=== PATIENT | male | born 1940 | race Caucasian/White ===

== ENCOUNTER 2017-03-20 20:29 | Emergency (ER) | payer MEDICARE ==
--- NOTE | 2017-03-20 21:38 | RAD ---
UPRIGHT PORTABLE CHEST ONE VIEW: 03/20/17 HISTORY: 76-year-old male with high blood pressure at home with associated chest pain. COMPARISON: 11/29/15. FINDINGS: Monitor leads overlie the chest. Mild right hemidiaphragm elevation. Heart size is normal. No conflu ent pneumonia, overt edema or pleural effusion or other acute process. IMPRESSION: No acute intrathoracic disease. Stable from prior study. POS: [facility]
[2017-03-20 22:05] LABS: #Eosinphils 0.2 thou/uL (0.0-0.7); #Monocytes 0.3 thou/uL (0.11-0.59); #Neutrophils 1.8 thou/uL (1.40-6.50); %Basophils 0.5 % (0.0-1.0); %Eosinophils 5.1 % (0.0-10.0); %Lymphocytes 30.3 % (21.0-51.0); %Monocytes 9.4 % (0.0-10.0); Hematocrit 31.8 % (42.0-52.0); Mean Platelet Volume 5.4 fL (7.4-10.4); Red Blood Cell (RBC) Count 3.29 mill/uL (4.70-6.10); White Blood Cell (WBC) Count 3.3 thou/uL (4.8-10.8)
[2017-03-20] MEDS ORDERED: Labetalol HCl 100 MG/20 ML VIAL ONE (22:12)
[2017-03-20 22:25] LABS: ALT (SGPT) 40 U/L (8-55); AST (SGOT) 22 U/L (5-34); Alkaline Phosphatase 63 U/L (40-150); Anion Gap 13 mmol/L (10-20); BUN (Urea Nitrogen) 19 mg/dL (8.4-25.7); Bilirubin, Total 0.5 mg/dL (0.2-1.2); Calc. Creatinine Clearance 0 mL/min (70-130); Calcium 9.8 mg/dL (7.8-10.44); Carbon Dioxide 27 mmol/L (23-31); Chloride 107 mmol/L (98-107); Estimated GFR-MDRD 42; Globulin 2.5 g/dL (2.4-3.5); Lipase 95 U/L (8-78); Protein, Total 6.5 g/dL (5.8-8.1)
[2017-03-20 22:29] LABS: Troponin I Less than 0.010 ng/mL (< 0.028)
[2017-03-20 23:16] LABS: Bilirubin Negative (Negative); Blood, Urine Negative (Negative); Glucose, Urine (Dipstick) 250 mg/dL (Negative); Ketone, Urine Negative (Negative); Nitrite Negative (Negative); Protein, Urine (Dipstick) 100 mg/dL (Neg-Trace); Urobilinogen 0.2 mg/dL (0.2-1.0)
[2017-03-20 23:18] LABS: Bacteria/HPF None Seen HPF (None Seen); Hyaline Casts/LPF 0-3 HYALINE CAST LPF (0-3 Hyaline); RBC/HPF None Seen HPF (0-3); Squamous Epithelial None Seen HPF (0-3); WBC/HPF None Seen HPF (0-3)
== END 2017-03-20 23:32 | disposition home or self-care (01) ==
LOC: ERS 20:29
DX: I16.0 Hypertensive urgency (principal); N17.9 Acute kidney failure, unspecified; E11.9 Type 2 diabetes mellitus without complications; E78.5 Hyperlipidemia, unspecified; I10 Essential (primary) hypertension; Z79.84 Long term (current) use of oral hypoglycemic drugs; Z79.899 Other long term (current) drug therapy
CPT/HCPCS: 36415; 71010; 80053; 81003; 81015; 82553; 82570; 83690; 84300; 84484; 84540; 85025; 93005; 96374

== ENCOUNTER 2017-05-11 09:06 | Emergency (ER) | payer MEDICARE, OTHER ==
--- NOTE | 2017-05-11 09:40 | RAD ---
CHEST 1 VIEW: Date: 05/11/17 HISTORY: Nonproductive cough. COMPARISON: Chest 1 view dated 03/12/17. FINDINGS: Lungs are clear. No pneumothorax or effusion. Cardiac silhouette and mediastinal contours within norm al limits. No acute osseous abnormality. IMPRESSION: No acute intrathoracic abnormality. No significant change. POS: [facility]
[2017-05-11 09:48] LABS: #Eosinphils 0.1 thou/uL (0.0-0.7); #Lymphocytes 0.9 thou/uL (1.20-3.40); #Monocytes 0.4 thou/uL (0.11-0.59); #Neutrophils 1.6 thou/uL (1.40-6.50); %Basophils 0.3 % (0.0-1.0); %Eosinophils 4.1 % (0.0-10.0); %Lymphocytes 29.5 % (21.0-51.0); %Monocytes 11.7 % (0.0-10.0); Hematocrit 29.2 % (42.0-52.0); Mean Platelet Volume 5.9 fL (7.4-10.4); Red Blood Cell (RBC) Count 2.97 mill/uL (4.70-6.10)
[2017-05-11 10:05] LABS: ALT (SGPT) 22 U/L (8-55); AST (SGOT) 17 U/L (5-34); Alkaline Phosphatase 66 U/L (40-150); Anion Gap 12 mmol/L (10-20); BUN (Urea Nitrogen) 18 mg/dL (8.4-25.7); Bilirubin, Total 0.7 mg/dL (0.2-1.2); Calc. Creatinine Clearance 0 mL/min (70-130); Calcium 10.1 mg/dL (7.8-10.44); Carbon Dioxide 26 mmol/L (23-31); Chloride 107 mmol/L (98-107); Estimated GFR-MDRD 56; Globulin 2.2 g/dL (2.4-3.5); Protein, Total 6.3 g/dL (5.8-8.1)
[2017-05-11] MEDS ORDERED: Ketorolac Tromethamine 60 MG/2 ML VIAL ONE (10:29)
[2017-05-11 11:05] LABS: Troponin I 0.035 ng/mL (< 0.028)
== END 2017-05-11 10:37 | disposition home or self-care (01) ==
LOC: ERS 09:06
DX: R09.1 Pleurisy (principal); E11.9 Type 2 diabetes mellitus without complications; E78.5 Hyperlipidemia, unspecified; I10 Essential (primary) hypertension
CPT/HCPCS: 36415; 71010; 80053; 82553; 83880; 84484; 85025; J1885

== ENCOUNTER 2017-06-25 15:11 | Outpatient (CLI) | payer MEDICARE, OTHER | END 2017-06-25 15:12 | disposition home or self-care (01) | LOC: BICULT 15:11 | PROVIDERS: ATTEND Internal Medicine Nephrology | DX: N18.9 Chronic kidney disease, unspecified (principal); N28.1 Cyst of kidney, acquired; N28.89 Other specified disorders of kidney and ureter; K76.0 Fatty (change of) liver, not elsewhere classified | CPT/HCPCS: 76770 ==

== ENCOUNTER 2017-07-22 08:04 | Outpatient (CLI) | payer MEDICARE, OTHER ==
--- NOTE | 2017-07-22 10:13 | RAD ---
RADIOGRAPH CHEST TWO VIEWS: Comparison: 05-11-17 Clinical history: Dyspnea. FINDINGS: There is mild elevation of the right hemidiaphragm. Slight patchy density seen at the left lung base. Otherwise, no lobar consolidation or effusion. No discrete pneumothorax. There is vascular calcifica tion. Pericardiac silhouette is borderline in size. IMPRESSION: Mild patchy density at the left lung base may be related to pericardial fat pad. Otherwise, no lobar consolidation is visualized. POS: [facility]
== END 2017-07-22 08:05 | disposition home or self-care (01) ==
LOC: RAD 08:04
PROVIDERS: ATTEND Internal Medicine Critical Care Medicine
DX: R06.00 Dyspnea, unspecified (principal); J98.4 Other disorders of lung
CPT/HCPCS: 71046

== ENCOUNTER 2017-08-08 20:58 | Inpatient (IN) | payer MEDICARE, OTHER ==
[~2017-08-08 20:58] MED LIST: ISOVUE-370 76%-LOCM 1 ML ONE
[2017-08-08] MEDS ORDERED: Ondansetron HCl/PF 4 MG/2 ML Vial ONE (21:45)
[2017-08-08] MEDS ORDERED: Morphine 4 MG/ML VIAL ONE (21:45)
[2017-08-08 21:52] LABS: #Basophils 0.1 thou/uL (0.0-0.2); #Eosinphils 0.1 thou/uL (0.0-0.7); #Lymphocytes 0.6 thou/uL (1.20-3.40); #Monocytes 0.4 thou/uL (0.11-0.59); %Basophils 1.5 % (0.0-1.0); %Eosinophils 2.3 % (0.0-10.0); %Lymphocytes 15.4 % (21.0-51.0); %Monocytes 9.3 % (0.0-10.0); %Neutrophils 71.6 % (42.0-75.0); Hemoglobin 12.2 g/dL (14.0-18.0); Mean Corpuscular HGB CONC 35.1 g/dL (32.0-36.0); Mean Corpuscular Hemoglobin 31.8 pg (27.0-31.0); Mean Corpuscular Volume 90.6 fl (80.0-94.0); Mean Platelet Volume 5.8 fL (7.4-10.4); Platelet Count 181 thou/uL (130-400); RBC Distribution Width 12.8 % (11.5-14.5); Red Blood Cell (RBC) Count 3.84 mill/uL (4.70-6.10); White Blood Cell (WBC) Count 4.2 thou/uL (4.8-10.8)
[2017-08-08 22:14] LABS: ALT (SGPT) 23 U/L (8-55); AST (SGOT) 15 U/L (5-34); Alkaline Phosphatase 65 U/L (40-150); Anion Gap 14 mmol/L (10-20); BUN (Urea Nitrogen) 20 mg/dL (8.4-25.7); Bilirubin, Total 0.6 mg/dL (0.2-1.2); Calc. Creatinine Clearance 0 mL/min (70-130); Calcium 9.3 mg/dL (7.8-10.44); Carbon Dioxide 21 mmol/L (23-31); Chloride 108 mmol/L (98-107); Estimated GFR-MDRD 61; Globulin 2.2 g/dL (2.4-3.5); Glucose 257 mg/dL (83-110); Lipase 45 U/L (8-78); Potassium 4.4 mmol/L (3.5-5.1); Protein, Total 6.2 g/dL (5.8-8.1); Sodium 139 mmol/L (136-145)
[2017-08-08 22:28] LABS: Bilirubin Negative (Negative); Blood, Urine Trace (Negative); Clarity CLEAR (Clear); Glucose, Urine (Dipstick) 500 mg/dL (Negative); Leukocyte Negative (Negative); Nitrite Negative (Negative); Protein, Urine (Dipstick) > or equal to 300 mg/dL (Neg-Trace); Specific Gravity, Urine 1.026 (1.002-1.036); Urobilinogen 0.2 mg/dL (0.2-1.0); pH, Urine 6.5 (5.0-9.0)
[2017-08-08 22:29] LABS: Bacteria/HPF None Seen HPF (None Seen); Hyaline Casts/LPF 4-6 HYALINE CAST LPF (0-3 Hyaline); Pathc Cast-AUWi Flag 1.21 (0-2.49); WBC/HPF 0-3 HPF (0-3)
[2017-08-08 22:37] LABS: Crystals/HPF None Seen HPF (Negative); Yeast-All Forms None Seen HPF (None Seen)
--- NOTE | 2017-08-08 22:48 | RAD ---
FRONTAL RADIOGRAPH CHEST UPRIGHT AND SUPINE IMAGING ABDOMEN: Date: 08-08-17 Comparison: 05-21-15 History: Vomiting. Pain. FINDINGS: Frontal radiograph chest demonstrates no pneumothorax, pleural fluid, focal consolidation or alveolar edema. Heart and mediastinal contours appear grossly unremarkable. The splenic shadow is prominent suggesting possible splenomegaly. Upright imaging demonstrates no ramy e intraperitoneal air. Bowel suture line is seen in the right lower quadrant. A paucity of bowel gas limits detailed assessment for bowel obstruction. There are a few scattered air fluid levels within t he right lower quadrant. IMPRESSION: 1. No evidence for free intraperitoneal air or acute cardiopulmonary disease. 2. Question splenomegaly. 3. Paucity of bowel gas noted, limiting assessment. There are a few air fluid levels noted in the rig ht lower quadrant. If there is clinical concern for small bowel obstruction, CT examination of the ab domen/pelvis or short term follow up radiograph of the abdomen advised as fluid filled distended karla l is a possibility. POS: [facility]
--- NOTE | 2017-08-08 23:52 | CT ---
CT OF THE ABDOMEN AND PELVIS: Date: 08-08-17 Comparison: 08-01-16 History: Distention and pain, assess for bowel obstruction. Technique: Serial axial CT imaging at 5 mm intervals from the lung bases through the pubic symphysis with IV contrast. Coronal reformatted imaging obtained. FINDINGS: The lack of oral contrast limits assessment of the bowel. The imaged lung bases appear unremarkable. Partially imaged coronal arterial calcification is noted. There is no free intraperitoneal air noted. The spleen is enlarged, measuring 17.8 cm in AP dimension, similar when compared to prior imaging. The liver is unremarkable. Gallbladder is nonvisualized. Pancreas, adrenal glands, and kidneys demons trate no acute findings. There is an exophytic right renal lower pole cyst noted. Small volume free fluid is seen in the pelvis posteriorly and inferiorly. There is also small volume free fluid within the mesentery in the left lower quadrant on image 79. The colon is decompressed. Scattered left sided diverticulosis noted. There is a small bowel suture line in the mid right abdomen. There are numerous dilated loops of small bowel within the anterior lower abdomen/pelvis, some of whi ch contain debris/fecal material, measuring up to 4.4 cm in transverse dimension. There is a transiti on point in the right lower quadrant to decompress small bowel, best seen on image 70. Distal decompr essed small bowel loops are seen within the right lower quadrant. These findings are consistent with small bowel obstruction with transition point in the right lower quadrant. There is a small hiatal he rnia containing debris. There are scattered atherosclerotic calcification of the abdominal aorta and its branches, extensivel y involving the abdominal aorta. Mild stable charleen prominence noted in the portahepatis and superior aspect of the retroperitoneum. Bi lateral fat containing inguinal hernias are present. There is dystrophic calcification within the pro state gland. There is lower lumbar spine facet hypertrophy with no worrisome lytic or blastic bone le coleen. IMPRESSION: 1. Multiple distal fluid filled dilated small bowel loops, some of which contain fecal material, with transition point in the right lower quadrant on image 70, evidence of significant small bowel obstru ction. Associated small volume free fluid noted in the left lower quadrant and pelvis. 2. No free intraperitoneal air. 3. Nonspecific splenomegaly. 4. Atherosclerotic calcification of the abdominal aorta and its branches as well as coronary arteries . 5. Surgical consultation advised. POS: [facility]
[2017-08-09] MEDS ORDERED: Ondansetron ODT 4 MG TAB SL PRN (01:13)
[2017-08-09] MEDS ORDERED: Ondansetron HCl/PF 4 MG/2 ML Vial IVP PRN (01:13)
[2017-08-09] MEDS ORDERED: Morphine 4 MG/ML VIAL SLOW IVP PRN ×2 (01:23→06:19)
[2017-08-09] MEDS ORDERED: Dextrose 5% in Water 1,000 ML IV PRN (01:38)
[2017-08-09] MEDS ORDERED: Dextrose 50% Abboject 50 ML SYRINGE SLOW IVP PRN (01:38)
[2017-08-09] MEDS: Dextrose 5 % And 0.9 % NaCl 1,000 ML IV SCH ×2 (01:41→10:33)
[2017-08-09] MEDS ORDERED: Carvedilol 25 MG TAB PO SCH ×3 (02:00→19:00)
[2017-08-09] MEDS ORDERED: Lisinopril 20 MG TAB PO SCH ×3 (02:00→18:45)
[2017-08-09 02:36] VITALS: BMI 32.3
[2017-08-09] MEDS ORDERED: Metoprolol Tartrate 5 MG/5 ML VIAL IVP PRN (03:06)
[2017-08-09] MEDS: HumaLOG 300 UNITS/3 ML VIAL SC PRN ×3 (06:20→17:38)
--- NOTE | 2017-08-09 06:59 | HP ---
CHIEF COMPLAINT: Abdominal pain. HISTORY OF PRESENT ILLNESS: This is a 76-year-old male with a known history of recurrent small-bowel obstruction, diabetes, hypertension, hyperlipidemia who presents with a chief complaint of abdominal pain. The patient states that this is very similar to the prior episodes of abdominal pain, althoug h not as severe as he had had in the past for small-bowel obstructions. The patient reports this occ urred earlier today and that he has had nausea without overt emesis, abdominal pain, and no bowel mov ements for the last 2 days. At the time of my evaluation on the floor, the patient's pain is currently controlled. His nausea is controlled. He understands the plan of care. REVIEW OF SYSTEMS: As per HPI. Denies any recent significant weight changes. Denies any recent fev ers or chills at home. HEENT: No new dizziness, headache or lightheadedness or vision changes. CARDIOVASCULAR: Denies any accompanying chest pain or chest pressure. Denies any left-sided arm num bness or tingling, diaphoresis or shortness of breath. RESPIRATORY: Denies any dyspnea with exertion, shortness of breath, recent upper respiratory infecti on. Denies any cough, congestion or postnasal drip. GASTROINTESTINAL: As per above. GENITOURINARY: Denies any recent dysuria or changes or difficulty with urinary frequency, quantity o r odor. MUSCULOSKELETAL: Denies any recent new myalgias or arthralgias. The remainder of review of systems otherwise negative. PAST MEDICAL HISTORY: 1. As per above including small-bowel obstruction x16 according to the patient. 2. Diabetes. 3. Hypertension. 4. Hyperlipidemia. PAST SURGICAL HISTORY: 1. Status post bowel obstruction surgeries x3. 2. Status post hernia repair. 3. Status post open cholecystectomy. HOME MEDICATIONS: Please see the EMR for full details, but his regimen does include Lantus, aspirin, fenofibrate, lisinopril, omeprazole, glipizide, Plavix, metformin, carvedilol, Lasix. ALLERGIES: No known drug allergies. FAMILY HISTORY: The patient does not know of any other family member with GI disease, recurrent smal l-bowel obstruction, or any bowel obstruction at all. SOCIAL HISTORY: The patient denies any alcohol, tobacco or illicit drug use. CODE STATUS: He wishes to be full code at this point in time. PHYSICAL EXAMINATION: VITAL SIGNS: Temperature 98.0, pulse of 82, respirations 18, satting 95% on room air, blood pressure 154/63. GENERAL: The patient is awake, alert, oriented x3, a reasonable historian as noted above. HEENT: Normocephalic, atraumatic. Equal ocular motions are intact, slightly dry mucous membranes. CARDIOVASCULAR: S1, S2. No murmurs, rubs or gallops. Soft heart tones likely secondary to habitus. Pulses 2+ bilateral upper extremities, no pitting pedal edema. RESPIRATORY: Respiratory limited anterior examination, otherwise reasonable air movement. No wheeze s, rales or rhonchi. Clear to auscultation bilaterally. ABDOMEN: Large, distended, decreased bowel sounds, soft, currently nontender to palpation, status po st IV pain medication administration. MUSCULOSKELETAL: Able to move all 4 extremities independently and self-reposition in the bed without assistance. LABORATORY DATA AND IMAGING: WBC 4.2, hemoglobin 12.2, hematocrit 34.8, platelets 181. Sodium 139, potassium 4.4, chloride 108, bicarbonate 21, BUN 20, creatinine 1.17, glucose 257, calcium 9.3, tota l bilirubin 0.6, AST 15, ALT 23, alkaline phosphatase 65, total protein 6.2, albumin 4.0. UA signifi cant for urine protein greater than 300, urine glucose 500 and trace blood with 4-6 squamous epitheli al cells and 4-6 hyaline casts. 08/03/2017 - Acute abdomen series. Impression, "no evidence for free intraperitoneal air or acute car diopulmonary disease. Question splenomegaly. Positive air glass noted, limiting assessment. There are a few air fluid levels noted in the right lower quadrant. If there is clinical concern for small -bowel obstruction, CT examination of the abdomen or pelvis or short term follow up radiograph of the abdomen advised as fluid filled distended bowel is a possibility". 08/03/2017 - CT of the abdomen and pelvis. Impression: Multiple distal fluid filled dilated small b owel loops, some of which contain fecal material with transition point in the small lower quadrant on image 70 of evidence of significant small-bowel obstruction. Associated small volume free fluid not ed in the left lower quadrant and pelvis. No free intraperitoneal air. Nonspecific splenomegaly. A therosclerotic calcification of the abdominal aorta and its branches as well as coronary arteries. S urgical consultation advised. ASSESSMENT AND PLAN: A 76-year-old male who presented with a chief complaint of abdominal pain. 1. Abdominal pain with presentation consistent with small-bowel obstruction. Surgical consult appre ciated. The patient is currently n.p.o. with IV fluids, pain regimen, empiric antibiotics including Cipro and Flagyl at this point in time. 2. Hypertension, stable. Hold the patient's home oral antihypertensive regimen. Utilize p.r.n., me toprolol IV as needed. 3. Type 2 diabetes. Continue the patient on a sliding scale insulin since he is n.p.o. We will hol d his home anti-hyperglycemic regimen and closely monitor. 4. Diet: N.p.o. 5. Activity: As tolerated. 6. Deep venous thrombosis prophylaxis, sequentials. Thank you for asking me care for the patient. He wishes to be full code at this point in time. Admi t inpatient to medical/surgical.
--- NOTE | 2017-08-09 09:29 | RAD ---
2 VIEWS ABDOMEN: Date: 08/09/17 COMPARISON: 06/18/14. CT abdomen/pelvis dated 08/08/17. HISTORY: Small bowel obstruction. FINDINGS: Supine and upright views of the abdomen show a nonspecific, nonobstructed bowel gas pattern. Contrast is seen in the bladder from prior contrast examination. An anastomotic staple line is seen in the ri ght abdomen. There is radiopaque material in both renal collecting systems in the region of the kidne ys which likely represents contrast as no definite calcifications were seen bilaterally on the prior CT. IMPRESSION: Nonobstructed bowel gas pattern. POS: [facility]
[2017-08-09] MEDS ORDERED: Ketorolac Tromethamine 30 MG/ML VIAL IVP PRN (11:17)
[2017-08-09] MEDS ORDERED: Acetaminophen 500 MG TAB PO PRN (11:17)
[2017-08-09] MEDS ORDERED: Acetaminophen 1,000 MG in Premix Bag 1 BAG IVPB PRN (11:17)
--- NOTE | 2017-08-09 12:15 | RAD ---
GASTROGRAFIN SMALL BOWEL: HISTORY: Evaluate for small bowel obstruction. COMPARISON: 08/03/16. FINDINGS: Two views abdomen were used as editor school photograph radiograph. Based on the 2-view abdomen, there is no evidence o f small bowel distention or dilatation. The patient was administered Gastrografin orally. Gastrografin opacifies multiple normal-caliber sma ll bowel loops. There is passage of Gastrografin into the colon on the 1 hour and 30 minute image. No evidence of high-grade obstruction. IMPRESSION: No evidence of a high-grade obstruction. POS: [facility]
--- NOTE | 2017-08-09 12:38 | HP ---
HISTORY OF PRESENT ILLNESS: Chip Freedman is a 76-year-old male patient who works as a master machinist in [place] reports this occasion admitted by Hospitalist last night with abdominal pain, nausea, and vo miting. He feels better this morning. NG tube was not placed. CT scan of abdomen and pelvis sugges yessi a small-bowel obstruction, distal small bowel decompression and apparent fecalization proximal to the staple line from the previous small bowel resection. The patient reports a tally of 17 hospital izations for bowel obstructions. This is including multiple hospitalizations before and operation in [place] several years ago. 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 He had had numerous hospitalizations prior to that with nonop erative treatment before finally undergoing small bowel resection. Apparently, there is no evidence of disease. I saw the patient in May 2014 and was admitted for repeat obstruction. The patient because of his frequent admissions underwent 06/18/2014 laparoscopy converted to a mini laparotomy wi segmental small bowel resection of the old anastomosis and reanastomosis. Postoperatively, he did well. Dr. Loyola readmitted him on 08/01/2016 and he underwent nonoperative treatment of a similar episode. Subsequent to that, he was admitted in [place] and underwent reoperation for a bowel obstr uction. He thinks due to adhesions, he does not think he had a bowel resection. He has not admissio ns since that admission laid in 2016 in [place]. He has bowel function has been normal until this cu rrent event. As stated above, patient feels better overnight. Even though he has not had an NG tube, he states is is the first admission where they have not placed an NG tube and he was surprised that they did no t. Abdominal x-rays and CAT scan revealed changes consistent with a bowel obstruction. When I nicanor olivier saw him, he had not had abdominal x-rays, but since that time, I have ordered a small bowel foll ow-through. By the time of this dictation, he has initiated that. On the 15-minute film, there are normal caliber small bowel loops seen and within 30 minutes, he does have progression of the contrast towards the staple line from his previous admission. By the 50-minute film, it appears that he may have early visualization of the colon. By the one and half hour film, he may have early visualizatio n of the colon and it is progressing. ALLERGIES: None. TOBACCO: None. ALCOHOL: None. PAST SURGICAL HISTORY: 1. 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 Numerous admissi ons prior to that, treated nonoperatively. 2. Operation by me in 2014 for recurrent obstruction due to multiple admissions prior for bowel obst ructions. 3. Surgery in [place] in 2017 for a bowel obstruction. Procedure performed, uncertain whether bowel resection was performed or not. Apparently, no evidence of disease today. Open cholecystectomy in the past. PAST MEDICAL HISTORY: Diabetes mellitus type 2, hypertension, hyperlipidemia, history of small bowel cancer, umbilical hernia repair, laparotomy in 2012 at [facility], up to date on colonoscopies. OUTPATIENT MEDICATIONS: Insulin 50 units subcutaneous p.m., aspirin daily, fenofibrate 160 mg daily, lisinopril 20 mg b.i.d., Prilosec 20 mg a day, fish oil daily, glipizide 10 mg b.i.d., Plavix [address], metformin 1000 mg b.i.d., carvedilol 1.5 b.i.d., and Lasix daily 20 mg. PHYSICAL EXAMINATION: VITAL SIGNS: 98.1 degrees, 78, 140/57. HEENT: Unremarkable. LUNGS: Clear to auscultation. CARDIAC: Regular rate and rhythm without murmur or gallop. ABDOMEN: Soft, nontender. Bowel sounds present, mild tympany. EXTREMITIES: No ankle edema. LABORATORY DATA: White count 4, hemoglobin 12. Basic metabolic profile normal, glucose 257. ASSESSMENT AND PLAN: Recurrent partial bowel obstruction. He has done well without a nasogastric tu be overnight. He is feeling much better today. I had discussed with him treatment options and after discussion, we will proceed with small bowel follow-through Gastrografin and make further recommenda tions on that study. Nurses will call me when the study is complete or call me should he have any pr oblems during the study. In the meantime, continue ambulation and DVT prophylaxis.
--- NOTE | 2017-08-09 13:28 | PDOC.EVN ---
Event Note - Event Note Event Note: Pt seen and examined.chart reviewed in detail. case discussed w ROWENA Chew. SBFT does not show SBO. Pt has had many BM since the test. will start Full Liquid diet w advance as tolerated. DC home later today or tomorrow,when tolerates diet. will follow. DC IVF
[2017-08-09] MEDS ORDERED: metroNIDAZOLE 500 MG in Premix Bag 1 BAG IVPB SCH (14:00)
[2017-08-09] MEDS ORDERED: MD-Gastroview 120 ML BOT ONE (16:51)
[2017-08-09] MEDS ORDERED: hydrALAZINE 20 MG/ML VIAL SLOW IVP SCH (17:15)
[2017-08-09] MEDS ORDERED: hydrALAZINE 20 MG/ML VIAL SLOW IVP PRN (18:38)
[2017-08-09] MEDS ORDERED: [UNRECOGNIZED DRUG - REMARK] FS SCH (18:45)
[2017-08-09] MEDS ORDERED: Furosemide 40 MG/4 ML VIAL SLOW IVP SCH (20:30)
[2017-08-09] MEDS ORDERED: Nitroglycerin 2% Ointment 1 INCH/1 GM Packet TOP SCH (20:30)
[2017-08-09] MEDS ORDERED: Amlodipine 10 MG TAB PO SCH (20:30)
[2017-08-09] MEDS ORDERED: Insulin Detemir 100 UNITS/ML 25 UNITS in Admixture Fee 1 EACH SC SCH (21:00)
[2017-08-09] MEDS ORDERED: Enoxaparin Sodium 40 MG/0.4 ML SYRINGE SC SCH (21:00)
[2017-08-10] MEDS ORDERED: Carvedilol 25 MG TAB PO SCH (09:00)
[2017-08-10] MEDS ORDERED: Lisinopril 20 MG TAB PO SCH (09:00)
[2017-08-10] MEDS ORDERED: Polyethylene Glycol 3350 17 GM Packet PO SCH (09:00)
[2017-08-10 11:06] VITALS: BP 172/65; TEMP 97.5
--- NOTE | 2017-08-10 14:16 | DIS ---
DATE OF ADMISSION: 08/08/2017 DATE OF DISCHARGE: 08/10/2017 PRIMARY CARE PHYSICIAN: Out of town in [place]. PRIMARY DISCHARGE DIAGNOSES: 1. Partial small-bowel obstruction, resolved. 2. Diabetes. 3. Hypertension. 4. Dyslipidemia. 5. History of multiple small-bowel obstruction requiring surgeries. 6. History of hernia repair and open cholecystectomy. DISCHARGE MEDICATIONS: Resume the home medications as follows: Lantus 50 units at bedtime, aspirin 162 mg daily, fenofibrate 160 mg daily, lisinopril 20 mg p.o. b.i.d., omega 3 fish oil, glipizide 10 mg p.o. b.i.d., Plavix 75 mg daily, metformin 1000 mg b.i.d., carvedilol 37.5 mg p.o. b.i.d., and Las ix 20 mg daily as needed. PROCEDURES DONE DURING HOSPITAL: 1. Acute abdominal series upon presentation, which showed a few air fluid levels in the right lower quadrant. 2. CT scan of the abdomen and pelvis which was concerning for significant small-bowel obstruction wi thout any free intraperitoneal air and nonspecific splenomegaly on abdominal aortic calcification. 3. Repeat abdominal x-ray on the next day at 08/09/2017 which showed nonobstructed bowel gas pattern . 4. Small bowel x-ray, 08/09/2017, which was negative for any high grade obstruction. CONSULTATIONS: Inhouse. General Surgery, Dr. Cool. HISTORY OF PRESENT ILLNESS: Mr. Freedman is a very sweet 76-year-old male with known history of multi ple small bowel obstructions in the past and multiple abdominal surgeries, who presented to [facility] ency room with complaints of abdominal pain. He felt that he might have another small-bowel obstruct ion. He had nausea upon presentation without any overt emesis and no bowel movement for 2 days prior to admission. He was admitted with a presumptive diagnosis of partial small-bowel obstruction after CT scan of the abdomen and pelvis done in the ER was consistent with the same. He was kept n.p.o. a nd General Surgery was consulted. Please see admission history and physical for further details. HOSPITAL COURSE: Dr. Cool saw the patient from General surgical team. He underwent a small bowel follow-through as repeat abdominal x-ray was unremarkable. Small bowel follow-through once again was negative for any obstruction. After the small bowel follow-through with Gastrografin ingestion, the patient started to have quite frequent and loose bowel movements which is his normal frequency. He did not require any NG tube insertion at this time. If he had partial small-bowel obstruction upon p resentation, it improved quite quickly without any intervention. By the time of discharge, he was to lerating a regular diet without any emesis and he was having regular stools. PHYSICAL EXAMINATION: He was seen and examined prior to discharge. His physical examination this mo rning include, VITAL SIGNS: Temperature 97.5, pulse 66, respirations 20, saturating 96% on room air, blood pressure 172/65. GENERAL: No acute distress, awake, alert, oriented x3. CHEST: Clear to auscultation bilaterally. Rate and rhythm is regular. ABDOMEN: Soft, nontender, nondistended, positive bowel sounds. Discharge plan was discussed with the patient who verbalized understanding. He is eager to go and wi ll follow up with his own physicians in [place] in 7-10 days. He will also follow up with Dr. Cool if he stays locally in the next week or so.
== END 2017-08-10 12:02 | disposition home or self-care (01) | DRG 390 ==
LOC: ERS 20:58 → SURG A 23:45
PROVIDERS: ADMIT Internal Medicine; ATTEND Internal Medicine
DX: K56.600 Partial intestinal obstruction, unspecified as to cause (principal); E11.9 Type 2 diabetes mellitus without complications; I10 Essential (primary) hypertension; E78.5 Hyperlipidemia, unspecified; Z85.068 Personal history of other malignant neoplasm of small intestine; Z90.49 Acquired absence of other specified parts of digestive tract; Z79.02 Long term (current) use of antithrombotics/antiplatelets; Z79.82 Long term (current) use of aspirin; Z79.4 Long term (current) use of insulin; Z79.899 Other long term (current) drug therapy
CPT/HCPCS: 36416; 74019; 74022; 74177; 74250; 80053; 81003; 81015; 83690; 85025; 86850; 86900; 86901; 94760; 96374; 96375; J0360; J0744; J1650; J1815; J1885; J1940; J2270; J2405

== ENCOUNTER 2018-05-15 19:13 | Inpatient (IN) | payer MEDICARE, OTHER ==
[2018-05-15] MEDS ORDERED: Nitroglycerin 2% Ointment 1 INCH/1 GM Packet ONE (19:43)
[2018-05-15 19:53] LABS: #Eosinphils 0.1 thou/uL (0.0-0.7); #Lymphocytes 0.8 thou/uL (1.20-3.40); #Monocytes 0.3 thou/uL (0.11-0.59); #Neutrophils 1.7 thou/uL (1.40-6.50); %Eosinophils 2.7 % (0.0-10.0); %Lymphocytes 27.2 % (21.0-51.0); %Monocytes 10.8 % (0.0-10.0); %Neutrophils 58.4 % (42.0-75.0); Hemoglobin 9.6 g/dL (14.0-18.0); Mean Corpuscular HGB CONC 34.7 g/dL (32.0-36.0); Mean Corpuscular Hemoglobin 33.8 pg (27.0-31.0); Mean Corpuscular Volume 97.3 fL (78.0-98.0); Mean Platelet Volume 7.1 fL (7.4-10.4); Platelet Count 134 thou/uL (130-400); RBC Distribution Width 15.4 % (11.5-14.5); Red Blood Cell (RBC) Count 2.84 mill/uL (4.70-6.10)
--- NOTE | 2018-05-15 20:12 | RAD ---
PORTABLE CHEST: HISTORY: Shortness of breath. COMPARISON: 05/11/2017 and 08/08/2017 FINDINGS: Heart size is within normal limits. There are bibasilar lung changes with increased density, which c ould represent small effusions. No overt interstitial edema change is seen. IMPRESSION: Increased density in the bases, which could represent atelectasis with small effusions. No overt pul monary vascular engorgement or signs of interstitial edema. POS: [facility]
[2018-05-15 20:17] LABS: ALT (SGPT) 17 U/L (8-55); AST (SGOT) 19 U/L (5-34); Albumin 3.7 g/dL (3.4-4.8); Alkaline Phosphatase 73 U/L (40-150); Anion Gap 12 mmol/L (10-20); BUN (Urea Nitrogen) 17 mg/dL (8.4-25.7); Bilirubin, Total 1.1 mg/dL (0.2-1.2); Calc. Creatinine Clearance 0 mL/min (70-130); Carbon Dioxide 23 mmol/L (23-31); Chloride 113 mmol/L (98-107); Estimated GFR-MDRD 68; Globulin 2.1 g/dL (2.4-3.5); Glucose 185 mg/dL (83-110); Potassium 3.7 mmol/L (3.5-5.1); Protein, Total 5.8 g/dL (5.8-8.1); Sodium 144 mmol/L (136-145)
[2018-05-15] MEDS ORDERED: Acetaminophen 325 MG TAB PO PRN (21:42)
[2018-05-15] MEDS ORDERED: Bisacodyl 5 MG TAB PO PRN (21:42)
[2018-05-15] MEDS ORDERED: Senokot S 8.6-50 MG TAB PO PRN (21:42)
--- NOTE | 2018-05-15 21:43 | CT ---
CT ANGIO CHEST PERFORMED WITH INTRAVENOUS CONTRAST ENHANCEMENT WITH 3D RECONSTRUCTIONS: HISTORY: Shortness of breath. FINDINGS: There are large bilateral pleural effusions. There are bibasilar atelectatic lung changes seen. No infiltrative process. The slight ground glass appearance to the lung mata could be on the basis of some mild edema. Abutting the inferior margin of the right middle lobe is an approximately 6 to 7 mm nodular density, which could represent a pleural-based node. It is stable in size, as compared to a 09/11/2015 exam. No significant mediastinal or hilar lymphadenopathy. The thoracic aorta is normal in caliber. There is good pulmonary arterial opacification. No CT evidence for pulmonary embolus. IMPRESSION: 1. No CT evidence for pulmonary embolus. 2. Moderately large bilateral pleural effusions with bibasilar atelectasis. Changes would suggest s ome pulmonary edema type change. POS: [facility]
[2018-05-15] MEDS ORDERED: Dextrose 50% Abboject 50 ML SYRINGE SLOW IVP PRN (21:44)
[2018-05-15] MEDS ORDERED: Dextrose 5% in Water 1,000 ML IV PRN (21:44)
[2018-05-15] MEDS ORDERED: Furosemide 40 MG/4 ML VIAL ONE (22:24)
[2018-05-15] MEDS ORDERED: hydrALAZINE 20 MG/ML VIAL SLOW IVP PRN (22:57)
[2018-05-15 23:25] LABS: Troponin I 0.027 ng/mL (< 0.028)
--- NOTE | 2018-05-16 00:13 | HP ---
CHIEF COMPLAINT: Shortness of breath. HISTORY OF PRESENT ILLNESS: The patient is a very pleasant 77-year-old male with history of hypertension, coronary artery disease and diabetes, who presented to the hospital with complaints of shortness of breath. The patient states that in October of 2017, he was undergoing medical clearance for his endoscopy and colonoscopy where he was seen by Cardiology and ended up getting 3 stents, 1 to the distal RCA and 2 to the proximal RCA in October of 2017. The patient stated that he has been doing well since then, walks minimal without getting any short of breath at home. The patient states that for the past couple of weeks, he has been noticing significant shortness of breath on minimal exertion, which he normally never had before. For the past four days, his shortness of breath has worsened to the point that he is unable to lie flat and he has positive orthopnea. The patient also states that he has been noticing significant swelling on his lower extremities. The patient states that he is compliant with his medication, however, he has not been very compliant with his diet. The patient denies any fevers or chills at home. Initially, he thought maybe this was secondary to his lung problems, especially this time of the year he normally gets ill with an upper respiratory infection versus pneumonia, so he kept doing DuoNebs and his p.r.n. inhaler, however, this did not help much, so he came into the hospital for further evaluation. The patient stated that today while he was in the EMS, he started having some chest tightness, was given one nitroglycerin, which helped him relieve his chest pain. He denies any fevers or chills. Denies any abdominal pain, any nausea, vomiting, or diarrhea. PAST MEDICAL HISTORY: 1. Diabetes. 2. Hypertension. 3. Coronary artery disease status post stents x3. 4. He has a history of bowel obstructions in the past. 5. GERD. PAST SURGICAL HISTORY: He has a history of hernia repair, open cholecystectomy, 3 surgeries for his bowel obstruction and he has had recent stents placed in. FAMILY HISTORY: His family history, his parents have history of heart disease in his family. MEDICATION LIST: As of the following; he is on aspirin 81 mg daily. He is on Plavix 75 mg daily. He is on fenofibrate 145 mg daily. He is on glipizide 10 mg b.i.d. He is on carvedilol 25 mg b.i.d. He is on lisinopril 40 mg daily. He is also on omeprazole 20 mg daily and he is also on Levemir 50 units q.p.m. ALLERGIES: HE HAS NO KNOWN DRUG ALLERGIES. REVIEW OF SYSTEMS: All negative except for the ones mentioned above in the HPI. PHYSICAL EXAMINATION: VITAL SIGNS: As of following; temperature of 98.8, respirations are 18, he is 98% on 2 L, his blood pressure is 180/90 and his heart rate is 89. GENERAL: He is awake, alert, and oriented x3. Does get short of breath on speaking complete sentences. HEENT: Normocephalic, atraumatic. No lymphadenopathy noted. CVS: S1, S2 present. No murmurs, rubs, or gallops. LUNGS: Diminished breath sounds to bilateral lower bases. No rhonchi or wheezes noted. ABDOMEN: Soft and nontender. Bowel sounds are present x2. No hepatomegaly or splenomegaly noted. EXTREMITIES: He does have +2 lower extremity pitting edema. NEURO: No focal deficits noted. He is able to move all extremities. Skin: No cuts, lesions or bruises noted. PSYCH: He is awake, alert, and oriented x3, and his affect is normal. LABORATORY DATA: As of the following; WBCs of 3.0, hemoglobin of 9.6, hematocrit of 27.7 and his platelets are 134. Chemistry; sodium of 144, potassium of 3.7, BUN of 17, creatinine is 1.06. His glucose is 185. His BNP was 177.5. His troponin x1 was negative. His EKG just showed first-degree AV block. No ST elevation or depression noted. He also had a CTA, which did not indicate any acute pulmonary emboli, however, did indicate that he has bilateral large pleural effusion and also some pulmonary edema and also 6-7 mm nodular density. ASSESSMENT AND PLAN: The patient is a very pleasant 77-year-old male who presents to the hospital with complaints of shortness of breath: 1. Shortness of breath, most likely secondary to volume overload. He possibly could have some heart failure versus just worsening pleural effusions. We will get an echocardiogram. His last echo was in 2015, which indicated an EF I believe it was 55% to 60%. He did have some mild tricuspid insufficiency and mild increased pulmonary artery pressure, so we will recheck an echo. We will check a TSH. Given the fact that he had recent stents placed in and he has some volume overload, we will also consult Cardiology. The patient is supposed to see his braid cutter on Wednesday. However, I do not think he will be able to make it until then. We will also start the patient on some Lasix 40 mg daily. I have educated him on salt intake and water intake. He is going to be put on a fluid restriction and also we will control his blood pressure because his blood pressure currently was significantly elevated. 2. Hypertension. Again, I will adjust his medication or maybe add some p.r.n.s for better blood pressure control. 3. Mild anemia. I have noted that he has been having some mild anemia. His MCV is high to normal. We will be getting a colonoscopy once he is cleared from a cardiac standpoint. 4. Diabetes. We will continue his home medication, also put him on a sliding scale for a p.r.n. 5. Deep venous thrombosis prophylaxis. We will put the patient on some SCDs. 6. Also, the patient normally wears a CPAP at home. We will order a CPAP for him. Job ID: [id number]
[2018-05-16 01:16] VITALS: BMI 35.4
[2018-05-16 02:03] LABS: #Eosinphils 0.1 thou/uL (0.0-0.7); #Monocytes 0.3 thou/uL (0.11-0.59); #Neutrophils 2.6 thou/uL (1.40-6.50); %Basophils 0.1 % (0.0-1.0); %Lymphocytes 23.8 % (21.0-51.0); %Monocytes 8.5 % (0.0-10.0); %Neutrophils 65.7 % (42.0-75.0); Hemoglobin 9.2 g/dL (14.0-18.0); Mean Corpuscular HGB CONC 34.8 g/dL (32.0-36.0); Mean Corpuscular Hemoglobin 33.7 pg (27.0-31.0); Mean Platelet Volume 5.8 fL (7.4-10.4); Platelet Count 167 thou/uL (130-400); RBC Distribution Width 15.2 % (11.5-14.5); Red Blood Cell (RBC) Count 2.74 mill/uL (4.70-6.10)
[2018-05-16 02:29] LABS: Anion Gap 13 mmol/L (10-20); BUN (Urea Nitrogen) 18 mg/dL (8.4-25.7); Calc. Creatinine Clearance 75 mL/min (70-130); Calcium 9.3 mg/dL (7.8-10.44); Carbon Dioxide 24 mmol/L (23-31); Chloride 111 mmol/L (98-107); Estimated GFR-MDRD 59; Glucose 140 mg/dL (83-110); Potassium 3.4 mmol/L (3.5-5.1); Sodium 145 mmol/L (136-145)
[2018-05-16] MEDS: Carvedilol 25 MG TAB PO SCH ×2 (06:10→17:01)
[2018-05-16] MEDS ORDERED: Metoclopramide HCl 10 MG/2 ML VIAL IVP PRN (07:18)
[2018-05-16] MEDS ORDERED: Loperamide HCl 2 MG CAP PO PRN (07:18)
[2018-05-16] MEDS ORDERED: Loratadine 10 MG TAB PO PRN (07:18)
[2018-05-16] MEDS ORDERED: Diabetic Tussin 200 MG/10 ML UDCUP PO PRN (07:18)
[2018-05-16] MEDS ORDERED: Cepastat Lozenges 1 LOZ PO PRN (07:18)
[2018-05-16] MEDS ORDERED: Artificial Tears 18 DROP/0.9 ML EA EYE PRN (07:18)
[2018-05-16] MEDS ORDERED: Sodium Chloride 0.65% Nasal 44 ML BOT EA NARE PRN (07:18)
[2018-05-16] MEDS ORDERED: Zolpidem Tartrate 5 MG TAB PO PRN (07:18)
[2018-05-16] MEDS ORDERED: Nitroglycerin 0.4 MG TAB (25 Tab Bottle) SL PRN (07:18)
[2018-05-16] MEDS ORDERED: Eucerin (Mineral Oil/Petrolatum,White) 30 gm Jar TOP PRN (07:18)
[2018-05-16] MEDS ORDERED: Sodium Chloride 0.9% 10 ML ONE ×2 (08:24→14:15)
[2018-05-16] MEDS ORDERED: Furosemide 40 MG/4 ML VIAL SLOW IVP SCH (09:00)
[2018-05-16] MEDS: Fenofibrate Nanocrystallized 145 MG TAB PO SCH (09:40)
[2018-05-16] MEDS: Potassium Chloride 20 MEQ TAB PO SCH (09:40)
[2018-05-16] MEDS: Cilostazol 100 MG TAB PO SCH ×2 (09:41→17:01)
[2018-05-16] MEDS: Ascorbic Acid 500 mg Chewable Tablet PO SCH ×2 (09:41→19:53)
[2018-05-16] MEDS: Lisinopril 20 MG TAB PO SCH ×2 (09:41→19:53)
[2018-05-16] MEDS: Clopidogrel Bisulfate 75 MG TAB PO SCH (09:42)
[2018-05-16] MEDS: Fish Oil 1,000 MG CAP PO SCH ×2 (09:42→19:53)
[2018-05-16] MEDS: Ferrous Sulfate 325 MG TAB PO SCH (09:42)
[2018-05-16] MEDS: Enoxaparin Sodium 40 MG/0.4 ML SYRINGE SC SCH (09:42)
--- NOTE | 2018-05-16 09:42 | PDOC.PN ---
- Subjective Encounter Start Date: 05/16/18 Encounter Start Time: 07:20 -: old records requested/rev Patient seen and examined. No new complaints. No overnight events has leg edema, has orthopnea, feels better than yesterday - Objective Resuscitation Status - Order Detail: 05/15/18 21:42 Resuscitation Status Routine Resuscitation Status: FULL: Full Resuscitation MAR Reviewed: Yes Vital Signs & Weight: Vital Signs (12 hours) Temp Pulse Resp BP BP BP Pulse Ox 05/16/18 08:00 98 F 76 18 169/70 H 96 05/16/18 04:27 94 196/85 H 05/16/18 04:00 97.7 F 94 16 191/79 H 95 05/16/18 00:08 97.9 F 87 18 164/70 H 96 05/15/18 21:44 96 Weight Weight 226 lb Result Diagrams: 05/16/18 01:53 05/16/18 01:53 Additional Labs: Accuchecks 05/16/18 05/16/18 05/15/18 05:35 00:48 23:26 POC Glucose 130 H 190 H 89 05/15/18 05/15/18 23:09 22:58 POC Glucose 52 L* 48 L* Radiology Reviewed by me: Yes (chest xray reviewed) EKG Reviewed by me: Yes (nsr) Phys Exam - Physical Examination Constitutional: NAD HEENT: PERRLA, moist MMs, sclera anicteric Neck: supple high JVD Respiratory: no wheezing, no rhonchi rales at base Cardiovascular: RRR, no significant murmur, no rub Gastrointestinal: soft, non-tender, no distention, positive bowel sounds Musculoskeletal: pulses present, edema present Neurological: non-focal, normal sensation, moves all 4 limbs Lymphatic: no nodes Psychiatric: normal affect, A&O x 3 Skin: no rash, normal turgor Dx/Plan (1) CHF exacerbation Code(s): I50.9 - HEART FAILURE, UNSPECIFIED Status: Acute Qualifiers: Heart failure type: right-sided Qualified Code(s): I50.813 - Acute on chronic right heart failure Comment: Echo done today, result pending (2) Hypoglycemia associated with type 2 diabetes mellitus Code(s): E11.649 - TYPE 2 DIABETES MELLITUS WITH HYPOGLYCEMIA WITHOUT COMA Status: Acute Comment: will hold diabetic meds today and resume slowly (3) Hypokalemia Code(s): E87.6 - HYPOKALEMIA Status: Acute Comment: will replace potassium today (4) Anemia, normocytic normochromic Code(s): D64.9 - ANEMIA, UNSPECIFIED Status: Chronic Comment: add ferrous sulfate daily (5) COPD (chronic obstructive pulmonary disease) Status: Chronic Comment: continue duoneb 6 hourly (6) Diabetes type 2, controlled Code(s): E11.9 - TYPE 2 DIABETES MELLITUS WITHOUT COMPLICATIONS Status: Chronic (7) Dyslipidemia Code(s): E78.5 - HYPERLIPIDEMIA, UNSPECIFIED Status: Chronic (8) Hypertension Code(s): I10 - ESSENTIAL (PRIMARY) HYPERTENSION Status: Chronic (9) Obesity (BMI 30-39.9) Code(s): E66.9 - OBESITY, UNSPECIFIED Status: Chronic - Plan cont current plan of care, respiratory therapy * follow on echo result * continue diuresis until euvolemic * monitor daily labs weight and I/O chart * replace electrolytes as needed * medication reviewed as below * symptomatic treatment * cardiology on case. Review of Systems - Review of Systems Constitutional: negative: fever, chills, sweats, weakness, malaise, other Eyes: negative: Pain, Vision Change, Conjunctivae Inflammation, Eyelid Inflammation, Redness, Other ENT: negative: Ear Pain, Ear Discharge, Nose Pain, Nose Discharge, Nose Congestion, Mouth Pain, Mouth Swelling, Throat Pain, Throat Swelling, Other Respiratory: SOB with Excertion. negative: Cough, Dry, Shortness of Breath, Hemoptysis, Pleuritic Pain, Sputum, Wheezing Cardiovascular: orthopnea, edema. negative: chest pain, palpitations, paroxysmal nocturnal dyspnea, light headedness, other Gastrointestinal: negative: Nausea, Vomiting, Abdominal Pain, Diarrhea, Constipation, Melena, Hematochezia, Other Genitourinary: negative: Dysuria, Frequency, Incontinence, Hematuria, Retention , Other Musculoskeletal: negative: Neck Pain, Shoulder Pain, Arm Pain, Back Pain, Hand Pain, Leg Pain, Foot Pain, Other Skin: negative: Rash, Lesions, Ismael, Bruising, Other - Medications/Allergies Allergies/Adverse Reactions: Allergies Allergy/AdvReac Type Severity Reaction Status Date / Time No Known Drug Allergies Allergy Verified 09/12/15 02:05 Medications: Current Medications Acetaminophen (Tylenol) 650 mg PO Q4H PRN PRN Reason: Headache/Fever/Mild Pain (1-3) Albuterol/Ipratropium (Duoneb) 3 ml NEB [id number] [facility] Artificial Tears (Tears Naturale) 2 drop EA EYE PRN PRN PRN Reason: Dry Eyes Ascorbic Acid (Vitamin C) 1,000 mg PO BID [facility] Last Admin: 05/16/18 09:41 Dose: 1,000 mg Aspirin (Aspirin Chewable) 162 mg PO DAILY [facility] Last Admin: 05/16/18 09:40 Dose: 162 mg Bisacodyl (Dulcolax) 10 mg PO DAILYPRN PRN PRN Reason: Constipation Carvedilol (Coreg) 37.5 mg PO BID-[facility] [place] Last Admin: 05/16/18 06:10 Dose: 37.5 mg Cholecalciferol (Vitamin D3) 1,000 units PO DAILY [facility] Last Admin: 05/16/18 09:41 Dose: 1,000 units Cilostazol (Pletal) 100 mg PO BID-[facility] Last Admin: 05/16/18 09:41 Dose: 100 mg Clopidogrel Bisulfate (Plavix) 75 mg PO DAILY [facility] Last Admin: 05/16/18 09:42 Dose: 75 mg Dextrose/Water (Dextrose 50%) 25 gm SLOW IVP PRN PRN PRN Reason: Hypoglycemia Enoxaparin Sodium (Lovenox) 40 mg SC 0900 [facility] Last Admin: 05/16/18 09:42 Dose: 40 mg Fenofibrate (Tricor) 145 mg PO DAILY [facility] Last Admin: 05/16/18 09:40 Dose: 145 mg Ferrous Sulfate (Feosol) 325 mg PO QA-[facility] [place] Last Admin: 05/16/18 09:42 Dose: 325 mg Fish Oil (Fish Oil) 1,000 mg PO BID [facility] Last Admin: 05/16/18 09:42 Dose: 1,000 mg Furosemide (Lasix) 40 mg SLOW IVP DAILY [facility] Last Admin: 05/16/18 09:40 Dose: 40 mg Glucagon (Glucagon) 1 mg IM PRN PRN PRN Reason: Hypoglycemia Guaifenesin (Robitussin Sf) 200 mg PO Q4H PRN PRN Reason: Cough Hydralazine HCl (Apresoline) 5 mg SLOW IVP Q8H PRN PRN Reason: SBP > 180 Last Admin: 05/16/18 04:27 Dose: 5 mg Dextrose/Water (D5w) 1,000 mls @ 0 mls/hr IV .Q0M PRN PRN Reason: Hypoglycemia Insulin Human Lispro (Humalog) 0 units SC .MILD SLIDING SCALE PRN PRN Reason: Mild Correctional Scale Isosorbide Mononitrate (Imdur Er) 30 mg PO DAILY [facility] Last Admin: 05/16/18 09:41 Dose: 30 mg Lisinopril (Zestril) 20 mg PO BID [facility] Last Admin: 05/16/18 09:41 Dose: 20 mg Loperamide HCl (Imodium) 2 mg PO PRN PRN PRN Reason: Diarrhea/Loose Stools Loratadine (Claritin) 10 mg PO DAILYPRN PRN PRN Reason: Sinus Symptoms Metoclopramide HCl (Reglan) 5 mg IVP Q4H PRN PRN Reason: Nausea Mineral Oil/White Petrolatum (Eucerin Cream) 0 gm TOP BIDPRN PRN PRN Reason: Dry Skin Nitroglycerin (Nitrostat) 0.4 mg SL Q5MIN PRN PRN Reason: Chest Pain Pantoprazole Sodium (Protonix) 40 mg PO DAILY [facility] Last Admin: 05/16/18 09:41 Dose: 40 mg Potassium Chloride (K-Dur) 20 meq PO QA-[facility] [place] Last Admin: 05/16/18 09:40 Dose: 20 meq Rosuvastatin Calcium (Crestor) 20 mg PO [facility] Senna/Docusate Sodium (Senokot S) 2 tab PO BIDPRN PRN PRN Reason: Constipation Sodium Chloride (Tibes Nasal [place] 0.65%) 0 ml EA NARE QIDPRN PRN PRN Reason: Nasal Congestion Throat Lozenges (Cepastat Lozenges) 1 dottie PO Q2H PRN PRN Reason: Sore Throat Zolpidem Tartrate (Ambien) 5 mg PO HSPRN PRN PRN Reason: Insomnia
[2018-05-16 10:58] LABS: Bilirubin Negative (Negative); Blood, Urine Negative (Negative); Clarity CLEAR (Clear); Glucose, Urine (Dipstick) Negative (Negative); Leukocyte Negative (Negative); Nitrite Negative (Negative); Protein, Urine (Dipstick) 100 mg/dL (Neg-Trace); Specific Gravity, Urine 1.011 (1.002-1.036); Urobilinogen 0.2 mg/dL (0.2-1.0)
[2018-05-16 11:02] LABS: Bacteria/HPF None Seen HPF (None Seen); Hyaline Casts/LPF 0-3 HYALINE CAST LPF (0-3 Hyaline); Pathc Cast-AUWi Flag 0.29 (0-2.49); RBC/HPF 0-3 HPF (0-3); Squamous Epithelial None Seen HPF (0-3); WBC/HPF None Seen HPF (0-3)
[2018-05-16] MEDS ORDERED: Spironolactone 25 MG TAB PO SCH (14:00)
[2018-05-16] MEDS: Furosemide 40 MG/4 ML VIAL SLOW IVP SCH (14:40)
[2018-05-16] MEDS: HumaLOG 300 UNITS/3 ML VIAL SC PRN ×2 (14:47→17:06)
[2018-05-16] MEDS ORDERED: Rosuvastatin 20 MG TAB PO SCH (21:00)
[2018-05-17] MEDS: Furosemide 40 MG/4 ML VIAL SLOW IVP SCH (05:22)
[2018-05-17] MEDS ORDERED: Spironolactone 25 MG TAB PO SCH (08:00)
[2018-05-17] MEDS: Enoxaparin Sodium 40 MG/0.4 ML SYRINGE SC SCH (09:47)
[2018-05-17] MEDS: Cilostazol 100 MG TAB PO SCH (09:47)
[2018-05-17] MEDS: Ferrous Sulfate 325 MG TAB PO SCH (09:47)
[2018-05-17] MEDS: Lisinopril 20 MG TAB PO SCH (09:48)
[2018-05-17] MEDS: Clopidogrel Bisulfate 75 MG TAB PO SCH (09:48)
[2018-05-17] MEDS: Fish Oil 1,000 MG CAP PO SCH (09:48)
[2018-05-17] MEDS: Carvedilol 25 MG TAB PO SCH (09:48)
[2018-05-17] MEDS: Potassium Chloride 20 MEQ TAB PO SCH (09:49)
[2018-05-17] MEDS: Ascorbic Acid 500 mg Chewable Tablet PO SCH (09:49)
[2018-05-17] MEDS: Fenofibrate Nanocrystallized 145 MG TAB PO SCH (09:49)
[2018-05-17] MEDS: HumaLOG 300 UNITS/3 ML VIAL SC PRN (09:50)
--- NOTE | 2018-05-17 10:32 | DIS ---
DATE OF ADMISSION: 05/15/2018 DATE OF DISCHARGE: 05/17/2018 PRIMARY CARE PHYSICIAN: [facility] Call Admission. DISCHARGE DISPOSITION: Home. PRIMARY DISCHARGE DIAGNOSES: 1. Acute on chronic diastolic congestive heart failure exacerbation, stage C. 2. Hypoglycemia associated with diabetes type 2. 3. Hypokalemia. SECONDARY DISCHARGE DIAGNOSES: 1. Obesity with BMI of 35. 2. Hypertension. 3. Dyslipidemia. 4. Diabetes, type 2. 5. Chronic obstructive pulmonary disease. 6. Normocytic normochromic anemia. 7. Chronic diastolic congestive heart failure. PRIMARY PROCEDURE/OPERATION: None. RADIOLOGICAL INVESTIGATIONS: Chest x-ray showed bilateral pleural effusion. CT angiography showed no evidence of pulmonary embolism consistent with pleural effusion on echocardiography. LABORATORY DATA: Significant labs; WBC 4.0, hemoglobin 9.2, and platelets 167. Uric acid 6.3. TSH 4.17. Sodium 145, potassium 3.4, BUN 18, creatinine 1.20, and calcium 9.3. LFT normal. BNP 177. Cardiac enzyme negative. Urinalysis normal. DISCHARGE MEDICATIONS: 1. Vitamin C 1000 mg p.o. b.i.d. 2. Aspirin 162 mg daily. 3. Coreg 37.5 mg p.o. b.i.d. 4. Vitamin D3 of 1000 units p.o. daily. 5. Cilostazol 100 mg p.o. b.i.d. 6. Plavix 75 mg daily. 7. Fenofibrate 160 mg daily. 8. Glipizide 10 mg p.o. b.i.d. 9. Glucosamine 1 tablet daily. 10. Levemir insulin 60 units subcu at bedtime. 11. Iron 45 mg p.o. b.i.d. 12. Imdur 30 mg daily. 13. Lisinopril 40 mg p.o. b.i.d. 14. Magnesium 100 mg p.o. b.i.d. 15. Metformin 1000 mg p.o. b.i.d. 16. Fish oil one capsule p.o. b.i.d. 17. Prilosec 20 mg daily. 18. Crestor 20 mg p.o. at bedtime. 19. Januvia 100 mg daily. 20. Lasix 40 mg daily. 21. Potassium chloride 20 mEq p.o. daily. CONTRAINDICATION: None. CODE STATUS: Full code. INPATIENT NEEDLE CONTROL CHENILLER: Dr. Rodriguez was following while in the hospital. TEST RESULTS PENDING ON DISCHARGE: None. ALLERGIES: NO KNOWN DRUG ALLERGIES. DISCHARGE PLAN: Posthospital, the patient has appointment with Cardiology tomorrow. The patient will follow up with primary care physician. HOSPITAL COURSE: A 77-year-old male with above-mentioned medical problem, who was admitted by Dr. Genoveva Jarquin. Please see her H and P for further details. The patient has underlying diastolic CHF. He was admitted for increasing shortness of breath, increasing bilateral lower extremity edema. This patient was admitted for CHF exacerbation. On admission, his chest x-ray showing pulmonary vascular congestion and effusion. CT angio was negative for pulmonary embolism. The patient was treated with IV Lasix while in the hospital. His edema significantly improving. Cardiology was consulted while in the hospital. The patient is doing much better today. He wants to go home today because of Lauren. Cardiology saw this patient and they also agreed with discharging him home. Cardiology recommended to continue Lasix 40 mg daily and potassium chloride 20 mEq p.o. daily. While in the hospital, he had a hypoglycemic episode with that, so we kept on hold his diabetes medication. On discharge, we had resumed all his diabetes medication and if necessary the patient education about diabetic diet, fluid restriction, salt restriction, and hypoglycemia precaution discussed with the patient. We did echocardiography during this admission. The patient already has appointment with Cardiology tomorrow. The patient is doing much better and he wants to go home today. Cardiology also cleared him for discharging him home today. PHYSICAL EXAMINATION: The patient is seen and examined at the bedside today. VITAL SIGNS: Currently, temperature 97.9, pulse 80, respiratory rate 18, saturation 95% on room air, and blood pressure 165/73. Weight 226 pounds. GENERAL: The patient is currently alert, awake. No obvious acute distress. HEENT: Head; normocephalic, atraumatic. Eyes; pupils are round and reactive to light. Extraocular muscle intact. ENT; oropharynx within normal limits. Moist mucous membranes. No oral lesion. No pharyngeal erythema. No exudate. NECK: Supple. No JVD. No thyromegaly. No carotid bruit. No jugular venous distention. LUNGS: Clear to auscultation without any rhonchi or rales. CARDIAC: S1 and S2, regular without any murmur. ABDOMEN: Soft and benign without any tenderness. EXTREMITIES: No edema. NEUROLOGICAL: Nonfocal examination. Overall, the patient is medically stable for discharge today. Job ID: [id number]
[2018-05-17 11:41] VITALS: BP 165/80; TEMP 98.5
--- NOTE | 2018-05-20 15:11 | EKG ---
Test Reason : Blood Pressure : / mmHG Vent. Rate : 082 BPM Atrial Rate : 082 BPM P-R Int : 312 ms QRS Dur : 096 ms QT Int : 380 ms P-R-T Axes : 044 015 095 degrees QTc Int : 443 ms Poor data quality, interpretation may be adversely affected Sinus rhythm with 1st degree A-V block Nonspecific T wave abnormality Abnormal ECG Confirmed by MADELAINE MENDOZA D.O. ([id number]), clinical editor APPLE SHAFFER ([id number]) on 05/20/2018 3:11:12 PM Referred By: Confirmed By:MADELAINE MENDOZA D.O.
== END 2018-05-17 12:02 | disposition home or self-care (01) | DRG 293 ==
LOC: ERS 19:13 → 2NO 21:38
PROVIDERS: ADMIT Internal Medicine; ATTEND Internal Medicine
PROC: B24BZZZ Ultrasonography of Heart with Aorta (ICD-10-PCS; principal; 2018-05-16)
DX: I11.0 Hypertensive heart disease with heart failure (principal); I50.33 Acute on chronic diastolic (congestive) heart failure; E11.649 Type 2 diabetes mellitus with hypoglycemia without coma; E78.5 Hyperlipidemia, unspecified; E87.6 Hypokalemia; J44.9 Chronic obstructive pulmonary disease, unspecified; D64.9 Anemia, unspecified; E66.9 Obesity, unspecified; Z68.35 Body mass index [BMI] 35.0-35.9, adult; Z71.3 Dietary counseling and surveillance; Z79.82 Long term (current) use of aspirin; Z79.818 Long term (current) use of other agents affecting estrogen receptors and estrogen levels; Z79.4 Long term (current) use of insulin; Z79.84 Long term (current) use of oral hypoglycemic drugs; Z79.811 Long term (current) use of aromatase inhibitors; Z85.038 Personal history of other malignant neoplasm of large intestine
CPT/HCPCS: 36415; 36416; 71045; 71275; 80048; 80053; 81001; 83880; 84443; 84484; 84550; 85025; 93005; 93306; 94640; 94660; 94760; 96374; G8978-GP-CI; G8979-GP-CI; G8980-GP-CI; J0360; J1650; J1940; J7620

== ENCOUNTER 2018-10-02 00:22 | Inpatient (IN) | payer MEDICARE, OTHER ==
[2018-10-02] MEDS ORDERED: Ondansetron PF 4 MG/2 ML Vial ONE (01:20)
[2018-10-02] MEDS ORDERED: Ketorolac Tromethamine 30 MG/ML VIAL ONE (01:20)
[2018-10-02 01:24] LABS: #Eosinphils 0.1 thou/uL (0.0-0.7); #Lymphocytes 0.5 thou/uL (1.20-3.40); #Monocytes 0.5 thou/uL (0.11-0.59); #Neutrophils 5.1 thou/uL (1.40-6.50); %Basophils 0.5 % (0.0-1.0); %Eosinophils 1.9 % (0.0-10.0); %Lymphocytes 8.2 % (21.0-51.0); %Monocytes 8.7 % (0.0-10.0); %Neutrophils 80.8 % (42.0-75.0); Hemoglobin 9.8 g/dL (14.0-18.0); Mean Corpuscular HGB CONC 34.3 g/dL (32.0-36.0); Mean Corpuscular Hemoglobin 33.9 pg (27.0-31.0); Mean Corpuscular Volume 98.6 fL (78.0-98.0); Mean Platelet Volume 6.3 fL (7.4-10.4); Platelet Count 223 thou/uL (130-400); RBC Distribution Width 13.6 % (11.5-14.5); White Blood Cell (WBC) Count 6.3 thou/uL (4.8-10.8)
[2018-10-02 01:44] LABS: ALT (SGPT) 34 U/L (8-55); AST (SGOT) 38 U/L (5-34); Albumin 3.9 g/dL (3.4-4.8); Alkaline Phosphatase 142 U/L (40-150); Anion Gap 15 mmol/L (10-20); BUN (Urea Nitrogen) 21 mg/dL (8.4-25.7); Bilirubin, Total 1.7 mg/dL (0.2-1.2); Calc. Creatinine Clearance 0 mL/min (70-130); Calcium 10.2 mg/dL (7.8-10.44); Carbon Dioxide 25 mmol/L (23-31); Chloride 106 mmol/L (98-107); Estimated GFR-MDRD 52; Globulin 2.5 g/dL (2.4-3.5); Glucose 187 mg/dL (83-110); Lipase 25 U/L (8-78); Potassium 3.5 mmol/L (3.5-5.1); Protein, Total 6.4 g/dL (5.8-8.1); Sodium 142 mmol/L (136-145)
[2018-10-02 03:02] LABS: Bilirubin Negative (Negative); Blood, Urine Small (Negative); Clarity CLEAR (Clear); Glucose, Urine (Dipstick) Negative (Negative); Leukocyte Negative (Negative); Nitrite Negative (Negative); Protein, Urine (Dipstick) > or equal to 300 mg/dL (Neg-Trace); Specific Gravity, Urine 1.023 (1.002-1.036); pH, Urine 5.5 (5.0-9.0)
[2018-10-02 03:05] LABS: Bacteria/HPF None Seen HPF (None Seen); Hyaline Casts/LPF 7-10 HYALINE CAST LPF (0-3 Hyaline); Pathc Cast-AUWi Flag 1.36 (0-2.49); Squamous Epithelial 0-3 HPF (0-3); WBC/HPF 0-3 HPF (0-3)
[2018-10-02] MEDS ORDERED: Morphine 4 MG/ML VIAL SLOW IVP PRN (05:03)
[2018-10-02] MEDS ORDERED: Ondansetron ODT 4 MG TAB SL PRN (05:07)
[2018-10-02] MEDS ORDERED: Ondansetron PF 4 MG/2 ML Vial IVP PRN ×2 (05:07→11:11)
[2018-10-02 05:13] VITALS: BMI 32.3
[2018-10-02] MEDS: Sodium Chloride 0.9% 1,000 ML IV SCH ×2 (05:33→13:31)
[2018-10-02] MEDS: Ketorolac Tromethamine 30 MG/ML VIAL IVP SCH ×3 (06:30→21:31)
[2018-10-02] MEDS ORDERED: Vancomycin HCl 1.5 GM in Sodium Chloride 0.9% 250 ML 300 ML IVPB SCH (08:00)
--- NOTE | 2018-10-02 08:08 | RAD ---
CHEST 1 VIEW: Date: 10/02/18 INDICATION: History of sepsis. COMPARISON: Prior exam dated 05/15/19. FINDINGS: There is subsegmental atelectasis involving the right lung base. Left lung is clear. Heart size lorena l. No acute osseous abnormality evident. IMPRESSION: Subsegmental atelectasis right lower lobe. POS: BH
--- NOTE | 2018-10-02 10:22 | CT ---
PRELIMINARY REPORT/[facility]/EMERGENCY AFTER HOURS PROCEDURE: EXAM: CT Abdomen and Pelvis With Contrast EXAM DATE/TIME: 10/02/2018 2:13 AM CLINICAL HISTORY: 77 years old, male; Acute; Patient HX: Gala presents to the ED with C/O diffuse abdominal pain and nadia sea onset tonight. PT reports a history of bowel obstruction and reports that his symptoms today are similar. PT reports he feels bloated. PT denies fever, chills, chest pain, SOB and dysuria. PT report s a normal bm today. TECHNIQUE: Imaging protocol: Axial computed tomography images of the abdomen and pelvis with intravenous contras t. Coronal reformatted images were created and reviewed. COMPARISON: No relevant prior studies available. FINDINGS: Lungs: There is subpleural atelectasis of the dependent portions of the lungs. Mediastinum: A small hiatal hernia is present. ABDOMEN: Liver: There are no focal liver lesions identified. Gallbladder and bile ducts: There has been a cholecystectomy. There is no common bile duct dilation. Pancreas: Normal. No ductal dilation. Spleen: There is moderate splenomegaly. Adrenals: Normal. No mass. Kidneys and ureters: There is a simple cyst in the right kidney. There are multiple left renal hypode nsities that cannot be further characterized on the current examination. Stomach and bowel: The stomach is normal. The duodenum is unremarkable. There is liquefied stool with in the colon. There is small bowel dilatation up to 4 cm with abrupt collapse just beyond the small b owel anastomosis in the RIGHT lower quadrant suggestive of small bowel obstruction. There is fecal material within the small bowel compatible with delayed transit. Appendix: The appendix is not visualized. PELVIS: Bladder: The bladder is normal. Reproductive: The prostate gland demonstrates nonspecific parenchymal calcifications. ABDOMEN and PELVIS: Intraperitoneal space: There is trace fluid in the RIGHT inguinal canal. Bones/joints: No acute fracture. No dislocation. Soft tissues: Unremarkable. Vasculature: Normal. No abdominal aortic aneurysm. Lymph nodes: Normal. No enlarged lymph nodes. IMPRESSION: There is small bowel dilatation up to 4 cm with abrupt collapse just beyond the small bowel anastomos is in the RIGHT lower quadrant suggestive of small bowel obstruction. Thank you for allowing us to participate in the care of your patient. Dictated and Authenticated by: Corey Barnes MD 10/02/2018 3:09 AM Central Time ([place] & [place]) FINAL REPORT EMERGENCY AFTER HOURS CT ABDOMEN AND PELVIS: IMPRESSION: I agree with the preliminary report provided by [email or web address]. There are dilated loops of small bowel with pos sible suggested transition zone in the right lower quadrant. Findings are suspicious for partial smal l bowel obstruction. There is also fluid density seen within the colon, which can be seen with diarrh eal states. Recommend correlation. There is stable splenomegaly. There is a small hiatal hernia. There is a right renal cyst. There is p ostsurgical change of a partial small bowel resection in the right lower quadrant of the abdomen. Pro minent vascular calcifications. The gallbladder is surgically absent. No drainable free fluid is evid ent. Small amount of free fluid is seen in the pelvis. There is mild anasarca. POS: BH
[2018-10-02] MEDS ORDERED: Acetaminophen 325 MG TAB PO PRN (11:11)
[2018-10-02] MEDS ORDERED: ISOVUE-370 76%-LOCM 1 ML ONE (12:02)
[2018-10-02] MEDS ORDERED: MD-Gastroview 120 ML BOT ONE (12:07)
--- NOTE | 2018-10-02 13:38 | RAD ---
EXAM: XR Small Bowel STANDARD DATE: 10/02/2018 11:03 AM INDICATION: Small bowel obstruction COMPARISON: CT abdomen pelvis dated October 02, 2018 FINDING: There are a few mildly dilated loops of small bowel within the midabdomen and left upper qu adrant of the abdomen. There is contrast migration to the level colon by one hour. IMPRESSION:Mild partial small bowel obstruction.
[2018-10-02] MEDS: Lactated Ringer's 1,000 ML IV SCH (15:16)
--- NOTE | 2018-10-02 15:47 | HP ---
REASON FOR ADMISSION: Small bowel obstruction. HISTORY OF PRESENT ILLNESS: The patient gives history of having abdominal pain, which started around noontime. This was in both lower quadrants. The pain was 7 to 8 out of 10 in intensity, colicky pain. This was coming off and on. This lasted until 10 p.m. The patient finally got exhausted and came to emergency room. He has known history of prior small bowel obstruction nearly 19 times and has had 3 surgeries for the same in the past. The last small-bowel obstruction was more than a year ago. He has had some nausea associated with the abdominal pain and vomited once yesterday evening. None at present. This morning he has had a bowel movement. PAST MEDICAL AND SURGICAL HISTORY: History of nearly 19 times small bowel obstruction with 3 prior surgeries. History of colon cancer with prior surgery, diabetes mellitus type 2, peripheral vascular disease, coronary artery disease with 2 stents placed a year back at [facility], benign prostatic hypertrophy, diabetes mellitus type 2, right knee surgery, hernia repair, cholecystectomy, and colon surgery. CURRENT MEDICATIONS: 1. Carvedilol 25 mg twice daily. 2. Metformin 1000 mg twice daily. 3. Glipizide 10 mg twice daily. 4. Aspirin 162 mg p.o. daily. 5. Cilostazol 100 mg p.o. twice daily. 6. Spironolactone 25 mg daily. 7. Hydralazine 25 mg 3 times a day. 8. Levemir 60 units subcu nightly. 9. Imdur 30 mg p.o. daily. 10. Flomax extended release 0.4 mg p.o. daily. 11. Omeprazole 20 mg daily. ALLERGIES: NO KNOWN DRUG ALLERGIES. PERSONAL HISTORY: Does not abuse alcohol or drugs. The patient quit smoking more than 30 years ago. Lives with his . FAMILY HISTORY: Mother in her 60s. She on the operating table while having the second bypass surgery. Father lived up to 84 years. He has had history of prostate cancer. CODE STATUS: Full. Power of retail product demo specialist is his review. REVIEW OF SYSTEMS: CONSTITUTIONAL: Negative for weight loss or gain, ability to conduct usual activities. SKIN: Negative for rash, itching. EYES: Negative for double vision, pain. ENT/MOUTH: Negative for nose bleeding, neck stiffness, pain, tenderness. CARDIOVASCULAR: Negative for palpitations, dyspnea on exertion, orthopnea. RESPIRATORY: Negative for shortness of breath, wheezing, cough, hemoptysis, fever or night sweats. GASTROINTESTINAL: Negative for poor appetite, abdominal pain, heartburn, nausea, vomiting, constipation, or diarrhea. GENITOURINARY: Negative for urgency, frequency, dysuria, nocturia. MUSCULOSKELETAL: Negative for pain, swelling. NEUROLOGIC/PSYCHIATRIC: Negative for anxiety, depression. ALLERGY/IMMUNOLOGIC: Negative for skin rash, bleeding tendency. PHYSICAL EXAMINATION: GENERAL: The patient is a 77-year-old male, who is currently not in any acute distress. VITAL SIGNS: Blood pressure 160/72, pulse 90 per minute, respiratory rate 22 per minute, temperature 97.6 degrees Fahrenheit, and saturating 98% on room air. NECK: Supple. No elevated JVD. HEENT: Eyes; extraocular muscles intact. Pupils reacting to light. Oral cavity, mucous membranes are dry. No exudates or congestion. CARDIOVASCULAR SYSTEM: S1-S2 heard. Regular rhythm. RESPIRATORY: Air entry 1+ bilateral. No rales or rhonchi. ABDOMEN: Soft. Bowel sounds heard. There is mild tenderness in the lower quadrants. No rigidity or guarding. EXTREMITIES: No peripheral edema or calf tenderness. VASCULAR SYSTEM: Peripheral pulses 1+ bilateral. No ischemic ulcerations or gangrene. CENTRAL NERVOUS SYSTEM: No gross focal deficits noted. The patient is alert, awake, and oriented well. PSYCHIATRIC SYSTEM: The patient's mood is euthymic. No hallucinations or delusions. LABORATORY DATA: EKG done shows sinus rhythm at 95 beats per minute. There are signs of LVH seen. H and H of 10 and 28, platelet count 223, MCV is 98, and white count of 6.3. Electrolytes stable. Serum bicarb is 25, BUN 21, creatinine 1.3, serum glucose 187, total bilirubin 1.7, AST is 38, and alkaline phosphatase is 142. Chest x-ray done shows mild atelectasis of right lower lobe. CT of the abdomen and pelvis done shows small bowel dilatation up to 4 cm with abrupt collapse just beyond the small bowel anastomosis in the right lower quadrant suggestive of small bowel obstruction. CLINICAL IMPRESSION AND PLAN: The patient will be admitted to medical floor for small bowel obstruction. He has had this nearly 19 times in the past. The patient has had a large bowel movement this morning. He will request Dr. Farrell for consultation for General Surgery. He will be on lactated Ringer at 75 mL per hour. Ice chips can be given. He will be on morphine and Toradol both p.r.n., Pepcid 20 mg IV q.12 hourly until he is able to tolerate oral solid diet. The patient is otherwise hemodynamically stable, and his abdomen is benign at present. He will be closely monitored on the medical floor with daily electrolyte panels as well. Job ID: [id number]
--- NOTE | 2018-10-02 19:28 | CON ---
DATE OF CONSULTATION: 10/02/2018 CONSULTING PHYSICIAN: Dr. Farrell. HISTORY OF PRESENT ILLNESS: This is a 77-year-old gentleman who presented to the emergency room for abdominal cramping. The patient states that initially it was only lasted 20 to 30 minutes and then cramping became constant. The patient reports he did vomit food. The patient does report having a bowel movement this morning, but has passed very little gas. General Surgery was consulted for possible small bowel obstruction. Does have a history of small bowel obstructions in the past. PAST MEDICAL HISTORY: 1. Small bowel obstruction with three prior surgeries. 2. History of colon cancer with prior surgery, diabetes mellitus type 2, peripheral vascular disease, coronary artery disease with 2 stents placed a year ago, benign prostate hypertrophy. PAST SURGICAL HISTORY: Again three abdominal surgeries for bowel obstruction, right knee surgery, hernia repair, cholecystectomy. CURRENT MEDICATIONS: 1. Carvedilol 25 mg p.o. twice daily. 2. Metformin 1000 mg twice daily. 3. Glipizide 10 mg twice daily. 4. Aspirin 162 mg p.o. daily. 5. Cilostazol 100 mg p.o. twice a day. 6. Spironolactone 25 mg daily. 7. Hydralazine 25 mg three times a day. 8. Levemir 60 units subcu nightly. 9. Imdur 30 mg p.o. daily. 10. Flomax extended release 0.4 mg p.o. daily. 11. Omeprazole 20 mg daily. ALLERGIES: NO KNOWN DRUG ALLERGIES. SOCIAL HISTORY: Denies alcohol or drug abuse. The patient quit smoking more than 30 years ago. The patient lives with his . REVIEW OF SYSTEMS: A 10-point review of systems is negative unless otherwise indicated in the above HPI. PHYSICAL EXAMINATION: VITAL SIGNS: Temperature 98.4, pulse 100, respirations 20, O2 saturation 94% on room air, and blood pressure 141/62. GENERAL: The patient is awake, alert, in no distress. Appears appropriate for age. HEENT: Normocephalic and atraumatic. Moist mucous membranes. RESPIRATORY: No respiratory distress. Equal chest rise and fall, equal breath sounds. CARDIOVASCULAR: Regular rate and rhythm. No pedal edema. ABDOMEN: Soft, slightly distended, mild tenderness, no rigidity or guarding. Positive bowel sounds. EXTREMITIES: No peripheral edema or calf tenderness. NEUROLOGICAL: No focal deficits. LABORATORY DATA: WBC 6.3, RBC 2.90, hemoglobin 9.8, hematocrit 28.6, platelets 223. Sodium 142, potassium 3.5, chloride 106, carbon dioxide 25, BUN 21, creatinine 1.33, estimated GFR 52, glucose 187, lactic acid 1.0, calcium 10.2, total bilirubin 1.7, AST 38, ALT 34, alkaline phosphatase 142. Serum total protein 6.4, albumin 3.9, globulin 2.5, lipase 25. Urinalysis; negative for nitrites, positive for protein, no bacteria. DIAGNOSTICS: CT abdomen and pelvis with contrast, impression; small bowel dilation up to 4 cm with a collapse just beyond the small bowel anastomosis in the right lower quadrant suggesting small bowel obstruction. IMPRESSION: 1. Possible partial small bowel obstruction. 2. History of previous abdominal surgery. PLAN: We will obtain a small bowel follow-through with Gastrografin only to determine if the patient has small bowel obstruction. The patient was examined with Dr. Farrell during morning rounds. Also recommend continuous IV fluids. Job ID: [id number]
[2018-10-02] MEDS ORDERED: Dextrose 5% in Water 1,000 ML IV PRN (19:50)
[2018-10-02] MEDS ORDERED: Dextrose 50% Abboject 50 ML SYRINGE SLOW IVP PRN ×2 (19:50)
[2018-10-02] MEDS ORDERED: Famotidine/PF 20 mg/2ml Vial SLOW IVP SCH (21:00)
[2018-10-02] MEDS ORDERED: MAGNESIUM AMINO ACID CHELATE PO SCH (21:00)
[2018-10-02] MEDS: Carvedilol 25 MG TAB PO SCH (21:30)
[2018-10-03] MEDS: Lactated Ringer's 1,000 ML IV SCH ×2 (01:17→04:09)
[2018-10-03] MEDS: Ketorolac Tromethamine 30 MG/ML VIAL IVP SCH (06:03)
[2018-10-03 06:59] LABS: #Eosinphils 0.2 thou/uL (0.0-0.7); #Lymphocytes 0.6 thou/uL (1.20-3.40); #Monocytes 0.3 thou/uL (0.11-0.59); #Neutrophils 1.8 thou/uL (1.40-6.50); %Basophils 0.7 % (0.0-1.0); %Eosinophils 8.1 % (0.0-10.0); %Lymphocytes 20.5 % (21.0-51.0); %Monocytes 11.5 % (0.0-10.0); %Neutrophils 59.2 % (42.0-75.0); Hemoglobin 8.3 g/dL (14.0-18.0); Mean Corpuscular Hemoglobin 34.3 pg (27.0-31.0); Platelet Count 178 thou/uL (130-400); RBC Distribution Width 13.8 % (11.5-14.5); Red Blood Cell (RBC) Count 2.42 mill/uL (4.70-6.10)
[2018-10-03 07:22] LABS: Anion Gap 11 mmol/L (10-20); BUN (Urea Nitrogen) 21 mg/dL (8.4-25.7); Calc. Creatinine Clearance 63 mL/min (70-130); Calcium 8.7 mg/dL (7.8-10.44); Carbon Dioxide 27 mmol/L (23-31); Chloride 109 mmol/L (98-107); Estimated GFR-MDRD 53; Glucose 69 mg/dL (83-110); Sodium 144 mmol/L (136-145)
[2018-10-03 07:27] LABS: Potassium 2.9 mmol/L (3.5-5.1)
[2018-10-03] MEDS ORDERED: Potassium Chloride 40 MEQ in Dextrose 5% in Water 1,000 ML IV SCH (08:30)
[2018-10-03] MEDS: Carvedilol 25 MG TAB PO SCH (08:57)
[2018-10-03] MEDS ORDERED: Enoxaparin Sodium 40 MG/0.4 ML SYRINGE SC SCH (09:00)
[2018-10-03] MEDS ORDERED: Magnesium Oxide 400 MG TAB PO SCH (09:00)
[2018-10-03] MEDS ORDERED: Clopidogrel Bisulfate 75 MG TAB PO SCH (09:00)
[2018-10-03] MEDS ORDERED: Potassium Chloride 20 MEQ TAB PO SCH ×2 (09:00→13:00)
[2018-10-03] MEDS ORDERED: Famotidine 20 MG TAB PO SCH (09:00)
[2018-10-03] MEDS ORDERED: Aspirin Chewable 81 MG TAB PO SCH (09:00)
[2018-10-03] MEDS ORDERED: Tamsulosin HCl 0.4 MG CAP PO SCH (09:00)
[2018-10-03] MEDS ORDERED: Ascorbic Acid 500 mg Chewable Tablet PO SCH (09:00)
[2018-10-03 12:29] VITALS: BP 134/64; TEMP 97.3
--- NOTE | 2018-10-03 13:47 | PDOC.PN ---
- Subjective Encounter Start Date: 10/03/18 Encounter Start Time: 11:00 Subjective: no abd pain or sob -: has had multiple bowel movements from yesterday am -: no nausea, is amb in room. at bedside - Objective Resuscitation Status - Order Detail: 10/02/18 11:11 Resuscitation Status Routine Resuscitation Status: FULL: Full Resuscitation Discussed with: POA: KATHIA Reviewed: Yes Vital Signs & Weight: Vital Signs (12 hours) Temp Pulse Resp BP Pulse Ox 10/03/18 12:27 97.3 F L 64 20 134/64 96 10/03/18 08:00 94 L 10/03/18 07:42 98.0 F 74 20 156/67 H 94 L 10/03/18 04:00 98 F 78 14 148/66 H 95 Weight Weight 206 lb 8 oz I&O: 10/02/18 10/03/18 10/04/18 06:59 06:59 06:59 Intake Total 100 1765 Balance 100 1765 Result Diagrams: 10/03/18 06:35 10/03/18 06:35 Additional Labs: Accuchecks 10/02/18 10/02/18 21:13 19:26 POC Glucose 98 68 L Phys Exam - Physical Examination HEENT: PERRLA, moist MMs Neck: no JVD, supple Respiratory: no wheezing, no rales Cardiovascular: RRR, no significant murmur Gastrointestinal: soft, non-tender, positive bowel sounds Musculoskeletal: no edema, pulses present Neurological: non-focal, moves all 4 limbs Psychiatric: normal affect, A&O x 3 Dx/Plan (1) SBO (small bowel obstruction) Code(s): K56.609 - UNSP INTESTNL OBST, UNSP TO PARTIAL VERSUS COMPLETE OBST Status: Acute (2) Anemia, normocytic normochromic Code(s): D64.9 - ANEMIA, UNSPECIFIED Status: Chronic (3) COPD (chronic obstructive pulmonary disease) Status: Chronic Qualifiers: COPD type: chronic bronchitis (4) Diabetes type 2, controlled Code(s): E11.9 - TYPE 2 DIABETES MELLITUS WITHOUT COMPLICATIONS Status: Chronic Qualifiers: Diabetes mellitus group home insulin use: with group home use Diabetes mellitus complication status: with unspecified complications Qualified Code(s) : E11.8 - Type 2 diabetes mellitus with unspecified complications; Z79.4 - retirement (current) use of insulin (5) Dyslipidemia Code(s): E78.5 - HYPERLIPIDEMIA, UNSPECIFIED Status: Chronic (6) Hypertension Code(s): I10 - ESSENTIAL (PRIMARY) HYPERTENSION Status: Chronic Qualifiers: Hypertension type: essential hypertension Qualified Code(s): I10 - Essential (primary) hypertension (7) Obesity (BMI 30-39.9) Code(s): E66.9 - OBESITY, UNSPECIFIED Status: Chronic - Plan sbo resolved, has been cleared by for DC -: replace one more dose of kdur prior to dc, got one in am -: to hold lasix and lantus till tomorrow evening -: hemostable, dc pt home -: d/w pt and at bedside * . Review of Systems - Medications/Allergies Allergies/Adverse Reactions: Allergies Allergy/AdvReac Type Severity Reaction Status Date / Time No Known Drug Allergies Allergy Verified 10/02/18 05:09
[2018-10-03] MEDS ORDERED: hydrALAZINE 25 MG TAB PO SCH (15:00)
--- NOTE | 2018-10-03 15:18 | PRG ---
DATE OF SERVICE: 10/03/2018 SUBJECTIVE: The patient has been tolerating his full liquid diet. The patient was alert, sitting up in bed when seen this morning. His pain and cramping have improved. He had 5 bowel movements yesterday. His pain is well controlled. OBJECTIVE: VITAL SIGNS: Temperature 97.3, pulse 64, respirations 20, O2 saturation 96% on room air, and blood pressure 134/64. GENERAL: This is a male in no acute distress, sitting in the bed and able to converse freely. PULMONARY: No respiratory distress. Equal chest rise and fall. Equal breath sounds. CARDIOVASCULAR: Regular rate and rhythm. No pedal edema. ABDOMEN: Soft with mild tenderness. No rigidity or guarding. Positive bowel sounds. EXTREMITIES: No peripheral edema. No calf tenderness. NEUROLOGIC: No focal deficits. LABORATORY DATA: White blood cells 3.0, hemoglobin 8.3, hematocrit 24.4, and platelets 178. Chemistry: Sodium 144, potassium 2.9, chloride 109, carbon dioxide 27, BUN 21, and creatinine 1.31. DIAGNOSTIC FINDINGS: Small-bowel x-ray on 10/02/2018, impression: Mild partial small-bowel obstruction. However, there was contrast migration to the level of the colon by 1 hour. ASSESSMENT: 1. Resolving partial small bowel obstruction. 2. History of previous abdominal surgery. PLAN: Small-bowel follow-through shows that the patient's bowel obstruction is resolving. The patient has had multiple bowel movements since yesterday. The patient has been tolerating a full liquid diet. We will discontinue IV fluids and advance his diet to a diabetic diet with 1800-calorie per day goal. The patient is cleared for discharge from a surgical point of view. We will sign off. The patient was seen and examined by Dr. Cool during rounds. Discussed with the patient who is in agreement. Job ID: [id number] MTDD
[2018-10-03] MEDS ORDERED: Cilostazol 100 MG TAB PO SCH (16:30)
[2018-10-03] MEDS ORDERED: metFORMIN 500 MG TAB PO SCH (17:00)
[2018-10-03] MEDS ORDERED: Furosemide 40 MG TAB PO SCH (21:00)
[2018-10-03] MEDS ORDERED: glipiZIDE 10 MG TAB PO SCH (21:00)
[2018-10-03] MEDS ORDERED: Insulin Glargine 60 UNITS in Pre-Filled Syringe 1 EACH SC SCH (21:00)
[2018-10-03] MEDS ORDERED: Non-Formulary Item 1 EACH (Insulin Detemir [Levemir] 60 UNIT) SQ SCH (21:00)
[2018-10-04] MEDS ORDERED: BOSWELLIA SERRA PO SCH (09:00)
[2018-10-04] MEDS ORDERED: D3 PO SCH (09:00)
[2018-10-04] MEDS ORDERED: GLUCOSAMINE PO SCH (09:00)
[2018-10-04] MEDS ORDERED: Spironolactone 25 MG TAB PO SCH (09:00)
[2018-10-04] MEDS ORDERED: GLUCOSAMINE COMPLEX PO SCH (09:00)
[2018-10-04] MEDS ORDERED: Non-Formulary Item 1 EACH (Omeprazole [Prilosec] 20 MG) PO SCH (09:00)
== END 2018-10-03 13:31 | disposition home or self-care (01) | DRG 390 ==
LOC: ERS 00:22 → T4-A 03:45
PROVIDERS: ADMIT Hospitalist; ATTEND Hospitalist
DX: K56.609 Unspecified intestinal obstruction, unspecified as to partial versus complete obstruction (principal); E11.9 Type 2 diabetes mellitus without complications; N40.0 Benign prostatic hyperplasia without lower urinary tract symptoms; I25.10 Atherosclerotic heart disease of native coronary artery without angina pectoris; J44.9 Chronic obstructive pulmonary disease, unspecified; E78.5 Hyperlipidemia, unspecified; E66.9 Obesity, unspecified; I10 Essential (primary) hypertension; Z95.5 Presence of coronary angioplasty implant and graft; Z90.49 Acquired absence of other specified parts of digestive tract; Z85.038 Personal history of other malignant neoplasm of large intestine; Z79.82 Long term (current) use of aspirin; Z79.84 Long term (current) use of oral hypoglycemic drugs; Z87.891 Personal history of nicotine dependence; Z79.4 Long term (current) use of insulin; Z68.32 Body mass index [BMI] 32.0-32.9, adult
CPT/HCPCS: 36415; 36416; 71045; 74177; 74250; 80048; 80053; 81003; 81015; 83605; 83690; 85025; 87040; 93005; 96361; 96374; 96375; J1650; J1885; J2405; J3370; J3480; J7050; J7070; Q9963; Q9966; S0028

== ENCOUNTER 2019-09-09 07:38 | Observation (INO) | payer MEDICARE, OTHER ==
[2019-09-09] MEDS ORDERED: Magnesium 2 GM/50 ML BAG (IN WATER) ONE (08:02)
[2019-09-09] MEDS ORDERED: methylPREDNISolone Sod Succ/PF 125 MG/2 ML VIAL ONE (08:02)
[2019-09-09] MEDS ORDERED: Furosemide 20 MG/2 ML VIAL ONE (08:12)
[2019-09-09 08:15] LABS: #Eosinphils 0.1 thou/uL (0.0-0.7); #Monocytes 0.6 thou/uL (0.11-0.59); #Neutrophils 2.4 thou/uL (1.40-6.50); %Basophils 0.6 % (0.0-1.0); %Eosinophils 3.2 % (0.0-10.0); %Lymphocytes 24.4 % (21.0-51.0); %Neutrophils 57.9 % (42.0-75.0); Hemoglobin 9.3 g/dL (14.0-18.0); Mean Corpuscular HGB CONC 34.1 g/dL (32.0-36.0); Mean Corpuscular Hemoglobin 33.6 pg (27.0-31.0); Mean Corpuscular Volume 98.6 fL (78.0-98.0); Mean Platelet Volume 6.8 fL (7.4-10.4); Platelet Count 183 thou/uL (130-400); Red Blood Cell (RBC) Count 2.76 mill/uL (4.70-6.10); White Blood Cell (WBC) Count 4.1 thou/uL (4.8-10.8)
[2019-09-09 08:37] LABS: ALT (SGPT) 23 U/L (8-55); AST (SGOT) 21 U/L (5-34); Albumin 3.8 g/dL (3.4-4.8); Alkaline Phosphatase 132 U/L (40-110); Anion Gap 14 mmol/L (10-20); BUN (Urea Nitrogen) 24 mg/dL (8.4-25.7); Bilirubin, Total 1.2 mg/dL (0.2-1.2); Calc. Creatinine Clearance 0 mL/min (70-130); Calcium 9.3 mg/dL (7.8-10.44); Carbon Dioxide 24 mmol/L (23-31); Chloride 107 mmol/L (98-107); Estimated GFR-MDRD 51; Globulin 2.3 g/dL (2.4-3.5); Glucose 328 mg/dL (83-110); Potassium 3.6 mmol/L (3.5-5.1); Protein, Total 6.1 g/dL (5.8-8.1); Sodium 141 mmol/L (136-145)
--- NOTE | 2019-09-09 08:45 | RAD ---
CHEST ONE VIEW PORTABLE: History: Dyspnea, productive cough, history of congestive heart failure and COPD. Comparison: 10-02-18 FINDINGS: Extensive bilateral vascular congestion and linear and interstitial parenchymal changes, particularly in the perihilar regions and evidence for pleural effusion showing worsening when compared to prior exam. No focal confluent lobar pneumonia. Left ICD. IMPRESSION: Progressive bilateral perihilar interstitial and linear changes and pleural effusion changes and vasc ular congestion most suggestive of interstitial pulmonary edema with probable considerable underlying component of chronic interstitial lung disease as well. Changes are certainly worse when compared to the 10-02-18 study. Continued short term follow up. POS: [facility]
[2019-09-09 08:57] LABS: CKMB 2.9 ng/mL (0-6.6)
[2019-09-09] MEDS ORDERED: HumaLOG 300 UNITS/3 ML VIAL SC PRN (09:28)
[2019-09-09] MEDS ORDERED: Dextrose 50% Abboject 50 ML SYRINGE SLOW IVP PRN (09:28)
[2019-09-09] MEDS ORDERED: Dextrose 5% in Water 1,000 ML IV PRN (09:28)
[2019-09-09] MEDS ORDERED: HYDROcodone/Acetaminophen 7.5/325 mg Tablet PO PRN (09:29)
[2019-09-09] MEDS ORDERED: Bisacodyl 5 MG TAB PO PRN (09:29)
[2019-09-09] MEDS ORDERED: Ondansetron PF 4 MG/2 ML Vial IVP PRN (09:29)
[2019-09-09] MEDS ORDERED: HYDROcodone/Acetaminophen 5/325 mg Tablet PO PRN (09:29)
[2019-09-09] MEDS ORDERED: Calcium Carbonate 500 MG ChewTAB PO PRN (09:29)
[2019-09-09 09:33] LABS: Bacteria/HPF None Seen HPF (None Seen); Bilirubin Negative (Negative); Blood, Urine Negative (Negative); Clarity Clear (Clear); Glucose, Urine (Dipstick) 500 mg/dL (Negative); Leukocyte Negative Leu/uL (Negative); Nitrite Negative (Negative); Protein, Urine (Dipstick) 300 mg/dL (Neg-Trace); RBC/HPF 0-3 HPF (0-3); Squamous Epithelial None Seen HPF (0-3); Urobilinogen Normal mg/dL (Less than 2); WBC/HPF 0-3 HPF (0-3)
[2019-09-09] MEDS ORDERED: Melatonin 3 MG TAB PO PRN (09:33)
[2019-09-09] MEDS ORDERED: Benzonatate 100 MG CAP PO PRN (09:33)
[2019-09-09] MEDS ORDERED: diphenhydrAMINE 25 MG CAP PO PRN (09:33)
[2019-09-09] MEDS ORDERED: Docusate 100 MG CAP PO PRN (09:33)
[2019-09-09] MEDS ORDERED: Labetalol HCl 100 MG/20 ML VIAL SLOW IVP PRN (09:33)
[2019-09-09 11:02] VITALS: BMI 28.7
[2019-09-09 13:08] LABS: Troponin I 0.123 ng/mL (< 0.028)
--- NOTE | 2019-09-09 14:07 | PDOC.HHP ---
Hospitalist HPI - History of Present Illness Shortness of breath History of Present Illness: Very pleasant 78-year-old gentleman with past medical history of coronary artery disease with stents placement, pacemaker placement, insulin diabetes mellitus, COPD, hypertension, hyperlipidemia, and osteoarthritis presents with shortness of breath. Patient with several days of worsening shortness of breath for which he sought emergency medical attention this morning. Patient tells me has a cardiac history with recent cardiac stents placement in April of this past year and a pacemaker placed on the same hospitalization. Patient normally receives his care in the [facility]. Patient also tells me he has been diagnosed with some sort of lesion on his stomach for which he is been following up at [facility] and is supposed to have a biopsy up coming this week. Patient has been taking his Plavix as directed after stents placement. Patient was directed to stop his Plavix soon though in anticipation for this biopsy at [facility]. I find the patient in the emergency department he is saturating well on low-flow nasal cannula. Patient is in mild respiratory distress and using his accessory muscles of respiration. Patient tells me he breathes better when he props his arms up and assumes a tripoding position. Patient admitted to the medical unit with telemetry for close management. Cardiology consultation requested for further recommendations. Hospitalist ROS - Review of Systems All other systems reviewed; all pertinent +/- noted in HPI/Subj Hospitalist History - Past Medical History Source: patient, old records Cardiac: reports: CAD, CHF, HTN Pulmonary: reports: high cholesterol, hypertension Musculoskeletal: reports: Osteoarthritis - Past Surgical History Past Surgical History: reports: Total Knee Replacement, Other (Cardiac cath with stents, pacemaker, bowel resection) - Family History Family History: reports: hypertension - Social History Smoking Status: Former smoker Tobacco Type: cigarettes Alcohol: reports: None Drugs: reports: none Living Situation: With Family Domestic Violence: Negative Activity level: independent ambulation - Exam General Appearance: awake alert General - other findings: Mild acute pulmonary distress Eye: PERRL, anicteric sclera ENT: normocephalic atraumatic, moist mucosa Neck: supple, symmetric, no thyromegaly Heart: no murmur, no gallops, no rubs, normal peripheral pulses Respiratory: no ronchi, normal chest expansion, no tachypnea, rales, wheezes Gastrointestinal: soft, non-tender, non-distended, no guarding, no rigidity Extremities: 1+ LE edema Skin: no rashes Neurological: cranial nerve grossly intact, no focal deficits Musculoskeletal: generalized weakness Psychiatric: normal affect, normal behavior, A&O x 3 Hospitalist Results - Labs Result Diagrams: 09/09/19 07:55 09/09/19 07:55 Lab results: WBC 4.1 thou/uL (4.8-10.8) L 09/09/19 07:55 Hgb 9.3 g/dL (14.0-18.0) L 09/09/19 07:55 Hct 27.2 % (42.0-52.0) L 09/09/19 07:55 MCV 98.6 fL (78.0-98.0) H 09/09/19 07:55 Plt Count 183 thou/uL (130-400) 09/09/19 07:55 Neutrophils % 57.9 % (42.0-75.0) 09/09/19 07:55 Sodium 141 mmol/L (136-145) 09/09/19 07:55 Potassium 3.6 mmol/L (3.5-5.1) 09/09/19 07:55 Chloride 107 mmol/L (98-107) 09/09/19 07:55 Carbon Dioxide 24 mmol/L (23-31) 09/09/19 07:55 BUN 24 mg/dL (8.4-25.7) 09/09/19 07:55 Creatinine 1.35 mg/dL (0.7-1.3) H 09/09/19 07:55 Glucose 328 mg/dL (83-110) H 09/09/19 07:55 Lactic Acid 1.2 mmol/L (0.5-2.2) 09/09/19 07:55 Calcium 9.3 mg/dL (7.8-10.44) 09/09/19 07:55 Total Bilirubin 1.2 mg/dL (0.2-1.2) 09/09/19 07:55 AST 21 U/L (5-34) 09/09/19 07:55 ALT 23 U/L (8-55) 09/09/19 07:55 Alkaline Phosphatase 132 U/L (40-110) H 09/09/19 07:55 CK-MB (CK-2) 2.9 ng/mL (0-6.6) 09/09/19 07:55 Troponin I 0.123 ng/mL (< 0.028) H 09/09/19 12:29 B-Natriuretic Peptide 680.8 pg/mL (0-100) H 09/09/19 07:55 Serum Total Protein 6.1 g/dL (5.8-8.1) 09/09/19 07:55 Albumin 3.8 g/dL (3.4-4.8) 09/09/19 07:55 Urine Ketones Negative mg/dL (Negative) 09/09/19 09:00 Urine Blood Negative (Negative) 09/09/19 09:00 Urine Nitrite Negative (Negative) 09/09/19 09:00 Ur Leukocyte Esterase Negative Vee/uL (Negative) 09/09/19 09:00 Urine RBC 0-3 HPF (0-3) 09/09/19 09:00 Urine WBC 0-3 HPF (0-3) 09/09/19 09:00 Ur Squamous Epith Cells None Seen HPF (0-3) 09/09/19 09:00 Urine Bacteria None Seen HPF (None Seen) 09/09/19 09:00 - Radiology Interpretation Chest x-ray Status: image reviewed by tn Hospitalist H&P A/P - Problem (1) CAD (coronary artery disease) Code(s): I25.10 - ATHSCL HEART DISEASE OF [place] CORONARY ARTERY W/O ANG PCTRS Status: Acute (2) Sick sinus syndrome Code(s): I49.5 - SICK SINUS SYNDROME Status: Acute (3) CHF exacerbation Code(s): I50.9 - HEART FAILURE, UNSPECIFIED Status: Acute Qualifiers: Heart failure type: right-sided Qualified Code(s): I50.813 - Acute on chronic right heart failure (4) Anemia, normocytic normochromic Code(s): D64.9 - ANEMIA, UNSPECIFIED Status: Chronic (5) COPD (chronic obstructive pulmonary disease) Status: Chronic Qualifiers: COPD type: chronic bronchitis (6) Diabetes type 2, controlled Code(s): E11.9 - TYPE 2 DIABETES MELLITUS WITHOUT COMPLICATIONS Status: Chronic Qualifiers: Diabetes mellitus middle or intermediate school principal insulin use: with intermediate use Diabetes mellitus complication status: with unspecified complications Qualified Code(s) : E11.8 - Type 2 diabetes mellitus with unspecified complications; Z79.4 - FPC (current) use of insulin (7) Dyslipidemia Code(s): E78.5 - HYPERLIPIDEMIA, UNSPECIFIED Status: Chronic (8) Hypertension Code(s): I10 - ESSENTIAL (PRIMARY) HYPERTENSION Status: Chronic Qualifiers: Hypertension type: essential hypertension Qualified Code(s): I10 - Essential (primary) hypertension - Plan Plan: Plan: Admit to medical unit with telemetry cardiology consultation, recommendations appreciated resume cardiac regimen continue Plavix IV Lasix for CHF Continue home Aldactone echocardiogram trend cardiac enzymes Continuous telemetry to monitor for arrhythmia fluid restrictions long and short acting insulin for glucose control blood sugar control blood pressure control continue other home medications as able G.I. prophylaxis DVT prophylaxis
[2019-09-09] MEDS: Furosemide 20 MG/2 ML VIAL SLOW IVP SCH (14:34)
[2019-09-09] MEDS: Heparin 5,000 UNITS/ML VIAL SC SCH ×2 (14:34→23:00)
[2019-09-09] MEDS ORDERED: hydrALAZINE 25 MG TAB PO SCH ×2 (15:00)
[2019-09-09 16:28] LABS: Troponin I 0.118 ng/mL (< 0.028)
[2019-09-09] MEDS ORDERED: Cilostazol 100 MG TAB PO SCH (16:30)
[2019-09-09] MEDS ORDERED: Aspirin Chewable 81 MG TAB PO SCH (17:15)
[2019-09-09] MEDS ORDERED: Clopidogrel Bisulfate 75 MG TAB PO SCH (17:15)
[2019-09-09] MEDS ORDERED: Cyanocobalamin 1000 MCG/ML VIAL IM SCH (18:15)
[2019-09-09 18:21] LABS: Glucose 607 mg/dL (83-110)
[2019-09-09] MEDS: HumaLOG 300 UNITS/3 ML VIAL SC PRN (18:24)
--- NOTE | 2019-09-09 18:44 | CON ---
DATE OF CONSULTATION: HISTORY OF PRESENT ILLNESS: The patient is a 78-year-old gentleman with a history of coronary artery disease and congestive heart failure, who presents with increasing dyspnea . The patient has a history of coronary artery disease. He states he previously has had several cardiac stents placed. He states about two years ago he had one stent placed and then subsequently 6 months ago he had two other coronary stents. The patient also has congestive heart failure. He states that he has been very compliant with his medications. He has noticed increasing dyspnea and swelling. He denied having any chest discomfort. The patient denies having any fevers or chills. PAST MEDICAL HISTORY: 1. Coronary artery disease. 2. Congestive heart failure. 3. Hypertension. 4. COPD. 5. Colon carcinoma. 6. History of pacemaker placement. PAST SURGICAL HISTORY: 1. Knee surgery. 2. Cholecystectomy. 3. Colon surgery. 4. Prostate surgery. SOCIAL HISTORY: Nonsmoker. MEDICATIONS: See nursing list. FAMILY HISTORY: No strong family history of heart disease. ALLERGIES: NO KNOWN DRUG ALLERGIES. REVIEW OF SYSTEMS: Ten-point system otherwise unremarkable. No history of easy bruising or bleeding or bright red blood per rectum. PHYSICAL EXAMINATION: GENERAL: This is a well-developed gentleman, in no acute distress. VITAL SIGNS: Blood pressure of 170/76. NECK: No jugular venous distention. LUNGS: Have a few crackles in both bases. HEART: Regular rate and rhythm. Normal S1 and S2 with no murmurs. ABDOMEN: Nondistended. EXTREMITIES: Moderate bilateral edema. LABORATORY RESULTS: Sodium 141, potassium 3.6, chloride 107, bicarbonate 24, BUN 24, creatinine 1.35. Troponin was 0.04. BNP 680. White blood cell count 4.1, hemoglobin 9.3, hematocrit 27.2, and his platelets are 183. EKG revealed an electronic ventricular pacemaker. IMPRESSION: 1. Congestive heart failure. 2. History of percutaneous transluminal coronary angioplasty and stent placement. 3. Hypertension. 4. Diabetes mellitus. 5. History of pacemaker placement. 6. Chronic obstructive pulmonary disease. PLAN: This gentleman presents with recurrent congestive heart failure. From a cardiac standpoint, he was being diuresed with IV Lasix. He will continue to follow up with his research and development engineer in [place]. I will restart the patient on aspirin and Plavix. We will follow this patient with you through his hospitalization. We will check the patient's echocardiogram. Job ID: [id number] MTDD
[2019-09-09] MEDS ORDERED: Carvedilol 25 MG TAB PO SCH (21:00)
[2019-09-09] MEDS ORDERED: Non-Formulary Item 1 EACH (Insulin Detemir [Levemir] 30 UNIT) SQ SCH (21:00)
[2019-09-09] MEDS ORDERED: Non-Formulary Item 1 EACH (Ascorbic Acid [Vitamin C] 1,000 MG) PO SCH (21:00)
[2019-09-09] MEDS ORDERED: Insulin Glargine 30 UNITS in Pre-Filled Syringe 1 EACH SC SCH (21:00)
[2019-09-09] MEDS ORDERED: Carvedilol 6.25 MG TAB PO SCH (21:00)
[2019-09-09] MEDS ORDERED: MAGNESIUM AMINO ACID CHELATE PO SCH ×2 (21:00)
[2019-09-09 22:30] LABS: Glucose 586 mg/dL (83-110)
[2019-09-09] MEDS: Ascorbic Acid 500 mg Chewable Tablet PO SCH (22:59)
[2019-09-09] MEDS: Carvedilol 25 MG TAB PO SCH (23:00)
[2019-09-09] MEDS: Famotidine 20 MG TAB PO SCH (23:00)
[2019-09-09] MEDS: Insulin Glargine 15 UNITS in Pre-Filled Syringe 1 EACH SC SCH (23:01)
[2019-09-10 05:40] LABS: #Lymphocytes 0.8 thou/uL (1.20-3.40); #Monocytes 0.5 thou/uL (0.11-0.59); #Neutrophils 2.2 thou/uL (1.40-6.50); %Basophils 0.8 % (0.0-1.0); %Eosinophils 0.3 % (0.0-10.0); %Lymphocytes 22.7 % (21.0-51.0); %Monocytes 13.6 % (0.0-10.0); %Neutrophils 62.7 % (42.0-75.0); Mean Corpuscular HGB CONC 35.1 g/dL (32.0-36.0); Mean Corpuscular Hemoglobin 34.3 pg (27.0-31.0); Mean Corpuscular Volume 97.8 fL (78.0-98.0); Mean Platelet Volume 6.8 fL (7.4-10.4); Platelet Count 161 thou/uL (130-400); RBC Distribution Width 16.8 % (11.5-14.5); Red Blood Cell (RBC) Count 2.33 mill/uL (4.70-6.10); White Blood Cell (WBC) Count 3.4 thou/uL (4.8-10.8)
[2019-09-10 06:02] LABS: Anion Gap 16 mmol/L (10-20); BUN (Urea Nitrogen) 32 mg/dL (8.4-25.7); Calc. Creatinine Clearance 49 mL/min (70-130); Calcium 8.7 mg/dL (7.8-10.44); Carbon Dioxide 21 mmol/L (23-31); Chloride 105 mmol/L (98-107); Estimated GFR-MDRD 47; Glucose 333 mg/dL (83-110); Potassium 3.6 mmol/L (3.5-5.1); Sodium 138 mmol/L (136-145)
[2019-09-10] MEDS: Furosemide 20 MG/2 ML VIAL SLOW IVP SCH (06:21)
[2019-09-10] MEDS ORDERED: Aspirin Chewable 81 MG TAB PO SCH (09:00)
[2019-09-10] MEDS ORDERED: Spironolactone 25 MG TAB PO SCH (09:00)
[2019-09-10] MEDS ORDERED: Non-Formulary Item 1 EACH (Omeprazole [Prilosec] 20 MG) PO SCH (09:00)
[2019-09-10] MEDS ORDERED: Non-Formulary Item 1 EACH (Cholecalciferol (Vitamin D3) [Vitamin D] 1,000 UNIT) PO SCH (09:00)
[2019-09-10] MEDS ORDERED: Isosorbide Mononitrate (ER) 30 MG TAB PO SCH (09:00)
[2019-09-10] MEDS: Tamsulosin HCl 0.4 MG CAP PO SCH (10:02)
[2019-09-10] MEDS: Isosorbide Mononitrate (ER) 30 MG TAB PO SCH (10:02)
[2019-09-10] MEDS: Rosuvastatin 20 MG TAB PO SCH (10:02)
[2019-09-10] MEDS: Spironolactone 25 MG TAB PO SCH (10:02)
[2019-09-10] MEDS: Aspirin Chewable 81 MG TAB PO SCH (10:03)
[2019-09-10] MEDS: Potassium Chloride 10 MEQ TAB PO SCH (10:03)
[2019-09-10] MEDS: Carvedilol 25 MG TAB PO SCH ×2 (10:03→21:39)
[2019-09-10] MEDS: Famotidine 20 MG TAB PO SCH (10:03)
[2019-09-10] MEDS: Ascorbic Acid 500 mg Chewable Tablet PO SCH ×2 (10:03→21:39)
[2019-09-10] MEDS: Clopidogrel Bisulfate 75 MG TAB PO SCH (10:03)
[2019-09-10] MEDS: Insulin Glargine 15 UNITS in Pre-Filled Syringe 1 EACH SC SCH (10:04)
[2019-09-10] MEDS: Heparin 5,000 UNITS/ML VIAL SC SCH ×3 (10:04→21:39)
[2019-09-10 12:35] LABS: Hemoglobin 8.1 g/dL (14.0-18.0)
[2019-09-10] MEDS: HumaLOG 300 UNITS/3 ML VIAL SC PRN ×3 (12:55→21:41)
[2019-09-10] MEDS ORDERED: Furosemide 40 MG/4 ML VIAL SLOW IVP SCH (14:00)
--- NOTE | 2019-09-10 14:03 | PDOC.HOSPP ---
- Subjective Subjective: Seen and examined. Patient overall feeling much better. He is breathing comfortably on room air. Lower extremity edema is improved. He has been "urinating a lot" and diuresing well. Echocardiogram demonstrates a reduced ejection fraction at 30% with a hypokinetic apex, unclear what his baseline is after several stents as he gets his care in the [facility] normally. Patient states he is interested in following up with the vocational teacher in primary care physician in the [facility] area from now on. Yesterday patient didn' t receive any of his normal insulin until the evening, in addition he received a dose of Solu-Medrol in the emergency department by emergency department physician resulting in blood sugars in the 600s. We have been playing catch-up trying to control his blood sugars and adjusting his regimen aggressively. Time was given for questions, all answered in detail. - Objective Vital Signs & Weight: Vital Signs (12 hours) Temp Pulse Resp BP Pulse Ox 09/10/19 11:00 98.0 F 74 18 135/61 97 09/10/19 07:35 97.8 F 83 16 149/65 H 96 09/10/19 03:32 97.5 F L 82 16 145/69 H 96 Weight Weight 178 lb 3.2 oz I&O: 09/09/19 09/10/19 09/11/19 06:59 06:59 06:59 Intake Total 1781 Output Total 2270 Balance -489 Result Diagrams: 09/10/19 12:27 09/10/19 05:29 Additional Labs: Accuchecks 09/10/19 09/10/19 09/10/19 10:44 05:39 01:08 POC Glucose 386 H 371 H 530 H Radiology Reviewed by me: Yes Hospitalist ROS - Review of Systems All other systems reviewed; all pertinent +/- noted in HPI/Subj - Medication Medications: Active Medications Generic Name Dose Route Start Last Admin Trade Name Freq PRN Reason Stop Dose Admin Hydrocodone Bitart/Acetaminophen 1 tab 09/09/19 09:29 09/09/19 22:58 Brothers 5/325 PO 1 tab Q4H PRN Administration Moderate Pain (4-6) Ascorbic Acid 1,000 mg 09/09/19 21:00 09/10/19 10:03 Vitamin C PO 1,000 mg BID TIM Administration Aspirin 81 mg 09/10/19 09:00 09/10/19 10:03 Aspirin Chewable PO 81 mg DAILY TIM Administration Carvedilol 25 mg 09/09/19 21:00 09/10/19 10:03 Coreg PO 25 mg BID [facility] Administration Cholecalciferol 1,000 units 09/10/19 09:00 09/10/19 10:02 Vitamin D3 PO 1,000 units DAILY TIM Administration Clopidogrel Bisulfate 75 mg 09/10/19 09:00 09/10/19 10:03 Plavix PO 75 mg DAILY [facility] Administration Cyanocobalamin 1,000 mcg 09/09/19 18:15 09/09/19 19:49 Vitamin B-12 IM Not Given Q28D [facility] Famotidine 20 mg 09/09/19 21:00 09/10/19 10:03 Pepcid PO 20 mg BID [facility] Administration Heparin Sodium (Porcine) 5,000 units 09/09/19 15:00 09/10/19 10:04 Heparin SC 5,000 units TID TIM Administration Insulin Human Lispro 0 units 09/09/19 09:28 09/09/19 23:01 Humalog SC 5 units .BEDTIME SLIDING SC PRN Administration Bedtime Correctional Scale Isosorbide Mononitrate 60 mg 09/10/19 09:00 09/10/19 10:02 Imdur Er PO 60 mg DAILY [facility] Administration Pantoprazole Sodium 40 mg 09/10/19 09:00 09/10/19 10:04 Protonix PO 40 mg DAILY [facility] Administration Potassium Chloride 10 meq 09/10/19 09:00 09/10/19 10:03 Klor-Con 10 PO 10 meq DAILY TIM Administration Rosuvastatin Calcium 20 mg 09/10/19 09:00 09/10/19 10:02 Crestor PO 20 mg DAILY [facility] Administration Sodium Chloride 10 ml 09/09/19 21:00 09/10/19 10:38 Flush - Normal Saline IVF 10 ml Q12HR TIM Administration Spironolactone 25 mg 09/10/19 09:00 09/10/19 10:02 Aldactone PO 25 mg DAILY [facility] Administration Tamsulosin HCl 0.4 mg 09/10/19 09:00 09/10/19 10:02 Flomax PO 0.4 mg DAILY TIM Administration - Exam General Appearance: NAD, awake alert Eye: PERRL ENT: normocephalic atraumatic, moist mucosa Neck: supple, symmetric, no lymphadenopathy Heart: no gallops, no rubs, normal peripheral pulses Respiratory: no wheezes, no ronchi, normal chest expansion, no tachypnea, rales Gastrointestinal: soft, non-tender, no guarding, no rigidity Extremities: 1+ LE edema Skin: no lesions, no rashes Neurological: cranial nerve grossly intact, no focal deficits Musculoskeletal: generalized weakness Psychiatric: normal affect, normal behavior, A&O x 3 Hosp A/P (1) CAD (coronary artery disease) Code(s): I25.10 - ATHSCL HEART DISEASE OF [place] CORONARY ARTERY W/O ANG PCTRS Status: Acute (2) Sick sinus syndrome Code(s): I49.5 - SICK SINUS SYNDROME Status: Acute (3) CHF exacerbation Code(s): I50.9 - HEART FAILURE, UNSPECIFIED Status: Acute Qualifiers: Heart failure type: right-sided Qualified Code(s): I50.813 - Acute on chronic right heart failure (4) Anemia, normocytic normochromic Code(s): D64.9 - ANEMIA, UNSPECIFIED Status: Chronic (5) COPD (chronic obstructive pulmonary disease) Status: Chronic Qualifiers: COPD type: chronic bronchitis (6) Diabetes type 2, controlled Code(s): E11.9 - TYPE 2 DIABETES MELLITUS WITHOUT COMPLICATIONS Status: Chronic Qualifiers: Diabetes mellitus linen room houseperson insulin use: with linen room houseperson use Diabetes mellitus complication status: with unspecified complications Qualified Code(s) : E11.8 - Type 2 diabetes mellitus with unspecified complications; Z79.4 - detention (current) use of insulin (7) Dyslipidemia Code(s): E78.5 - HYPERLIPIDEMIA, UNSPECIFIED Status: Chronic (8) Hypertension Code(s): I10 - ESSENTIAL (PRIMARY) HYPERTENSION Status: Chronic Qualifiers: Hypertension type: essential hypertension Qualified Code(s): I10 - Essential (primary) hypertension - Plan Plan: cardiology consultation, recommendations appreciated continuous telemetry to monitor for arrhythmia echocardiogram demonstrates a reduced ejection fraction at 30% and a hypokinetic apex IV Lasix continue other cardiomyopathy regimen as able, Aldactone was not on home meds list on admission Continue Plavix, ASA patient is a difficult to control diabetic, a combination of long and short acting insulin has been adjusted to better control his elevated blood sugars blood pressure control continue other home medications as able G.I. prophylaxis DVT prophylaxis Disposition: patient requesting follow up with a primary care physician and vocational teacher in the [facility] area as he has recently moved here. No longer seeking care in [place].
[2019-09-10] MEDS: Insulin Glargine 18 UNITS in Pre-Filled Syringe SC SCH (21:40)
[2019-09-11 05:30] LABS: Hemoglobin 8.3 g/dL (14.0-18.0)
[2019-09-11] MEDS: Potassium Chloride 10 MEQ TAB PO SCH (08:33)
[2019-09-11] MEDS: Isosorbide Mononitrate (ER) 30 MG TAB PO SCH (08:33)
[2019-09-11] MEDS: Ascorbic Acid 500 mg Chewable Tablet PO SCH (08:33)
[2019-09-11] MEDS: Heparin 5,000 UNITS/ML VIAL SC SCH ×2 (08:34→15:04)
[2019-09-11] MEDS: Carvedilol 25 MG TAB PO SCH (08:34)
[2019-09-11] MEDS: Insulin Glargine 18 UNITS in Pre-Filled Syringe SC SCH (08:34)
[2019-09-11] MEDS: Clopidogrel Bisulfate 75 MG TAB PO SCH (08:35)
[2019-09-11] MEDS: Tamsulosin HCl 0.4 MG CAP PO SCH (08:35)
[2019-09-11] MEDS: Aspirin Chewable 81 MG TAB PO SCH (08:35)
[2019-09-11] MEDS: Spironolactone 25 MG TAB PO SCH (08:35)
[2019-09-11] MEDS: Rosuvastatin 20 MG TAB PO SCH (08:35)
[2019-09-11] MEDS ORDERED: Famotidine 20 MG TAB PO SCH (09:00)
[2019-09-11] MEDS: HumaLOG 300 UNITS/3 ML VIAL SC PRN (11:02)
[2019-09-11 11:26] VITALS: TEMP 98.5
[2019-09-11 14:55] VITALS: BP 169/73
--- NOTE | 2019-09-13 13:03 | DIS ---
DATE OF ADMISSION: 09/09/2019 DATE OF DISCHARGE: 09/11/2019 DISCHARGE DIAGNOSES: 1. Acute on chronic systolic heart failure. 2. Coronary artery disease. 3. Sick sinus syndrome. 4. Normochromic normocytic anemia. 5. Chronic obstructive pulmonary disease. 6. Diabetes mellitus. 7. Dyslipidemia. 8. Hypertension. HISTORY OF PRESENT ILLNESS: This patient is a 78-year-old male, who generally has his cardiology followup in [place], but has recently moved to the area. The patient presented to the hospital reporting some shortness of breath. His chest x-ray was consistent with pulmonary edema consistent with congestive heart failure. His BNP was elevated at 681. HOSPITAL COURSE: The patient was admitted to the hospital with congestive heart failure exacerbation. He remained on telemetry, had aggressive diuresis. He was seen in consultation by Cardiology, who agreed with the plan for diuresis, but given recent stent intervention, was resumed on Plavix and aspirin. He had an echocardiogram performed, which revealed an ejection fraction of 30% to 40% with apical hypokinesis, dilated IVC and pacer wires visualized in the right ventricle with mild to moderate MR and mild TR. The patient improved significantly with diuresis, and was ultimately felt to be comfortable for discharge to home safely in stable condition. PHYSICAL EXAMINATION: VITAL SIGNS: On the day of discharge, temperature is 98.5, pulse 78, respirations 15, O2 saturation 98% on room air, BP was 169/73. GENERAL: He was awake, alert, pleasant, cooperative. HEART: Regular rate and rhythm. LUNGS: Clear bilaterally. ABDOMEN: Soft, nontender. EXTREMITIES: No edema. DISPOSITION: The patient is discharged to home. ACTIVITY: As tolerated. DIET: Heart healthy, low-sodium with 1500 mL fluid restriction daily. DISCHARGE MEDICATIONS: Include; 1. Glucosamine complex 500 mg one p.o. daily. 2. Aspirin 81 mg daily. 3. Omeprazole 20 mg daily. 4. Plavix 75 mg daily. 5. Carvedilol 25 mg b.i.d. 6. Vitamin D3 2000 units daily. 7. Vitamin C 1000 mg b.i.d. 8. Isosorbide mononitrate 60 mg daily. 9. Tamsulosin 0.4 mg daily. 10. Rosuvastatin 20 mg daily. 11. NovoLog FlexPen sliding scale. 12. Levemir 30 units q.a.m. 13. B vitamin complex with iron one p.o. daily. 14. B12 1000 mg IM q.month. 15. Potassium 10 mEq daily. 16. Lasix 40 mg p.o. daily. FOLLOWUP: He is to follow up with Leesa Aviles at the [facility] as well as Dr. Rodriguez in the [facility] and establish with a local PCP. He can return to the hospital at anytime he has the need to do so. Job ID: [id number]
== END 2019-09-11 15:41 | disposition home or self-care (01) ==
LOC: ERS 07:38 → 2SE 09:22
PROVIDERS: ADMIT Internal Medicine; ATTEND Internal Medicine
DX: I11.0 Hypertensive heart disease with heart failure (principal); I50.813 Acute on chronic right heart failure; I25.10 Atherosclerotic heart disease of native coronary artery without angina pectoris; E11.9 Type 2 diabetes mellitus without complications; J44.9 Chronic obstructive pulmonary disease, unspecified; E78.5 Hyperlipidemia, unspecified; M19.90 Unspecified osteoarthritis, unspecified site; I49.5 Sick sinus syndrome; E78.00 Pure hypercholesterolemia, unspecified; D64.9 Anemia, unspecified; K31.89 Other diseases of stomach and duodenum; Z87.891 Personal history of nicotine dependence; Z79.02 Long term (current) use of antithrombotics/antiplatelets; Z79.4 Long term (current) use of insulin; Z79.82 Long term (current) use of aspirin; Z79.899 Other long term (current) drug therapy; Z95.0 Presence of cardiac pacemaker; Z95.5 Presence of coronary angioplasty implant and graft; Z90.49 Acquired absence of other specified parts of digestive tract
CPT/HCPCS: 71045; 80048; 80053; 82553; 82947; 82962 ×3; 83605; 83880; 84484 ×2; 85014 ×2; 85018 ×2; 85025 ×2; 87040; 87086; 87804 ×2; 93005; 93306; 96365; 96372 ×3; 96375; 96376 ×2; 97116 ×2; 97139 ×5; 99285; G0378 ×4; J1644 ×3; J1815 ×3; J1940 ×2; J2930; J3475; 36415; 36416; 81003; 81015